=== PATIENT | female | born 1980 | race Caucasian/White ===

== ENCOUNTER 2018-12-08 06:17 | Inpatient (IN) | payer BC ==
[~2018-12-08] VITALS: Ht 175.3 cm; Wt 90.7 kg
[2018-12-08] VITALS (15 sets, daily range): BP systolic 94–136; BP diastolic 55–97
[~2018-12-08 06:17] MED LIST: AMBIEN10 M1 ORAL; AMLODIPINE BESYL5 MG ORAL; LISINOPRIL10 MG ORAL; TYLENOL EXTRA500 MG ORAL; Z-SLEEP25 MG PO
[2018-12-08] MEDS ORDERED: Bacitracin 50000 Units Vial ONE (07:19)
[2018-12-08] MEDS ORDERED: Succinylcholine 20mg/ml 10ml vial ONE (07:43)
[2018-12-08] MEDS ORDERED: Lidocaine 1% MPF 10mg/ml 5ml ONE (07:43)
[2018-12-08] MEDS ORDERED: Zemuron 50mg/5ml Inj IV ONE ×2 (07:43→08:50)
[2018-12-08] MEDS ORDERED: fentaNYL 100 mcg/2 mL IV ONE (07:43)
[2018-12-08] MEDS ORDERED: Midazolam 2mg/2ml Inj ONE (07:43)
[2018-12-08] MEDS ORDERED: Propofol 200mg/20ml IV ONE (07:43)
[2018-12-08] MEDS ORDERED: TransDerm Scop 1mg/72HR Patch TDERMAL ONE ×2 (07:58→09:00)
[2018-12-08] MEDS ORDERED: Ketorolac 30mg Inj ONE (08:00)
[2018-12-08] MEDS ORDERED: LR 1000ml ONE ×2 (08:00→18:39)
[2018-12-08] MEDS ORDERED: Sterile Water Irrig 1000ml IRRIG ONE (08:00)
[2018-12-08] MEDS ORDERED: NS Irrig 2000ml IRRIG ONE (08:01)
[2018-12-08] MEDS ORDERED: NS Irrig 1000ml IRRIG ONE (08:01)
--- NOTE | 2018-12-08 08:06 | Pre-Procedure Note/Attestation ---
Pre-Procedure Note/Attestation Complete Prior to Procedure Planned Procedure: bilateral Procedure Narrative: staged excision of bilatreral buttocks and hips and back necrotic soft tissue and flap delay and wound vac placement Indications for Procedure Pre-Operative Diagnosis: bilateral buttock and hip and back necrotic soft tissue/cellulitis Attestation I attest that I discussed the nature of the procedure; its benefits; risks and complications; and alternatives (and the risks and benefits of such alternatives ), prior to the procedure, with the patient (or the patient's legal medical representative). I attest that, if there was a reasonable possibility of needing a blood transfusion, the patient (or the patient's legal medical representative) was given the [place] [facility] of [facility] Services standardized written summary, pursuant to the Johnny Trommald Blood Safety Act ([place] Health and Safety Code # 1645, as amended). I attest that I re-evaluated the patient just prior to the surgery and that there has been no change in the patient's H&P, except as documented below: Aileen Flores M.D. Dec 08, 2018 08:06
[2018-12-08] MEDS ORDERED: PCA HYDROmorphone 1mg/ml 30 ML IV PRN ×2 (08:15→10:50)
[2018-12-08] MEDS ORDERED: DiphenhydrAMINE 50mg/ml Inj IVP PRN ×3 (08:15→09:00)
[2018-12-08] MEDS ORDERED: Dexamethasone 4mg/ml vial ONE (08:31)
[2018-12-08] MEDS ORDERED: Sodium Chloride 10ml vial INJ ONE ×2 (08:46→09:12)
[2018-12-08] MEDS ORDERED: Morphine Sulfate 10mg/ml Inj ONE (08:46)
[2018-12-08] MEDS ORDERED: LR 1000ml 1,000 ML IVLG SCH (08:56)
[2018-12-08] MEDS ORDERED: Hydromorphone 0.5mg/0.5ml inj IVP PRN (09:00)
[2018-12-08] MEDS ORDERED: Acetaminophen (Non formulary) 100 ML IV ONE (09:00)
[2018-12-08] MEDS ORDERED: Ketorolac 30mg Inj IV PRN (09:00)
[2018-12-08] MEDS ORDERED: Metoclopramide 10mg/2ml Inj IVP PRN (09:00)
[2018-12-08] MEDS ORDERED: Naloxone 0.4mg/ml Inj IVP PRN (09:00)
[2018-12-08] MEDS ORDERED: Meperidine 50mg/ml Inj(FOR RIGORS ONLY) IV PRN (09:00)
[2018-12-08] MEDS ORDERED: Midazolam 2mg/2ml Inj IVP PRN (09:00)
[2018-12-08] MEDS ORDERED: LORazepam 1mg tab ORAL PRN (09:00)
[2018-12-08] MEDS ORDERED: PCA Education Pamphlet MISC ONE (09:00)
[2018-12-08] MEDS ORDERED: Rate Change PCA 1 Each MISC PRN (09:00)
[2018-12-08] MEDS ORDERED: Neostigmine 1mg/ml 10ml Inj ONE (09:01)
[2018-12-08] MEDS ORDERED: Glycopyrrolate 0.2mg/ml 1ml Vial ONE (09:01)
[2018-12-08] MEDS ORDERED: ePHEDrine 50mg/ml Inj ONE (09:12)
--- NOTE | 2018-12-08 10:18 | Operative Note - PDOC ---
Operative Note Operative Note Date of Operation/Procedure: Dec 08, 2018 Pre-op Diagnosis: bilateral buttock and hip and back necrotic soft tissue/cellulitis Procedure: debridement of bilateral buttock/back/hip necrotic soft tissue and flap delay and wound vac placement Post-op Diagnosis: same Post-op Diagnosis: same as pre-op Surgeon: hernán Computer Game Tester: patience Anesthesiologist: virgil Anesthesia: general Specimen: yes - bilateral back and buttock necrotic soft tissues Complications: none Condition: stable Estimated Blood Loss: volume - 700 Drains: wound vac Implant(s) used?: No Indications for Procedure necrotic soft tissue symptomatic and cellulitis Description of Procedure see dictation Aileen Flores M.D. Dec 08, 2018 10:17
--- NOTE | 2018-12-08 10:37 | Immediate Post-Op Evaluation ---
Immediate Post-Op Evalulation Immediate Post-Op Evalulation Procedure: Debridement of bilateral buttocks Date of Evaluation: Dec 08, 2018 Time of Evaluation: 10:36 IV Fluids: 1500 Blood Products: none Estimated Blood Loss: 500 Urinary Output: 350 Blood Pressure Systolic: 112 Blood Pressure Diastolic: 56 Pulse Rate: 86 Respiratory Rate: 22 O2 Sat by Pulse Oximetry: 98 Temperature (Fahrenheit): 98.2 Pain Score (1-10): 2 Nausea: No Vomiting: No Complications none Patient Status: awake, patent, extubated, none Hydration Status: adequate Bethel Chávez MD Dec 08, 2018 10:37
--- NOTE | 2018-12-08 10:42 | Anethesia Preoperative Eval ---
Anesthesia Pre-op PMH/ROS General Date of Evaluation: Dec 08, 2018 Time of Evaluation: 07:40 Anesthesiologist: Saira ASA Score: ASA 2 Mallampati Score Class I : Soft palate, uvula, fauces, pillars visible Class II: Soft palate, uvula, fauces visible Class III: Soft palate, base of uvula visible Class IV: Only hard plate visible Mallampati Classification: Class II Surgeon: Mark Diagnosis: Bilateral buttocks cellulitis Surgical Procedure: Debridement of bilateral buttocks Anesthesia History: PONV Family History: no anesthesia problems Allergies: Coded Allergies: No Known Allergies (Unverified , 12/08/18) Medications: see eMAR Patient NPO?: Yes NPO Date: Dec 08, 2018 NPO Time: 0000 Past Medical History Cardiovascular: Reports: HTN - stable; Denies: CAD, OR, valve dz, arrhythmia, other Pulmonary: Reports: BRIDGET - mild; Denies: asthma, COPD, other Gastrointestinal/Genitourinary: Reports: GERD; Denies: CRI, ESRD, other Neurologic/Psychiatric: Reports: depression/anxiety, other - transgender femaile; Denies: dementia, CVA, TIA Endocrine: Denies: DM, hypothyroidism, steroids, other HEENT: Denies: cataract (L), cataract (R), glaucoma, PECHANGA (L), PECHANGA (R), other Hematology/Immune: Denies: anemia, DVT, bleeding disorder, other Musculoskeletal/Integumentary: Denies: OA, RA, DJD, DDD, edema, other PMH Narrative: as above PSxH Narrative: see H&P Anesthesia Pre-op Phys. Exam Physician Exam Last Vital Signs Date Time Temp Pulse Resp B/P (MAP) Pulse Ox O2 Delivery O2 Flow Rate FiO2 12/08/18 06:51 97.0 92 20 136/97 (110) 100 12/08/18 06:50 Room Air Constitutional: NAD Neurologic: CN 2-12 intact Cardiovascular: RRR, no M/R/G Respiratory: CTA Gastrointestinal: S/NT/ND Airway Exam Mallampati Score: Class II MO: full Neck: flexible ROM: full Teeth: intact Dentures: no upper, no lower Anesthesia Pre-op A/P Labs see chart Urine Test Test 12/08/18 06:30 Urine HCG, Qualitative Negative (NEGATIVE) Studies Pre-op Studies: EKG - NSR Risk Assessment & Plan Assessment: ASA 2 Plan: GA with ETT PONV prevention prone position Status Change Before Surgery: No Pre-Antibiotics Drug: Ancef 2gr Given Within 1 Hr of Incision: Yes Time Given: 08:15 Bethel Chávez MD Dec 08, 2018 10:42
--- NOTE | 2018-12-08 12:00 | NUR ---
NURSE NOTES: Patient arrived from PACU via bed at 1200. Report received from Kourtney KUHN. Patient on O2 3LNC. No SOB, pain, or NV. Left wrist IV infusing, as ordered, site asymptomatic. RN HOMECARE (Dilaudid), connected, instructed patient on use and setting. Wound Vac #1 (right) with bloody drainage in cannister, less than 50 ml. Wound Vac #2 (left), empty. Back/hip dressing tegederm intact, right side with bloody drainage pooling in tegederm. Neves catheter in place, patent, draining well to gravity, y/cl urine. Reviewed post op orders for diet, medications, antibiotics, proper positioning and activity, verbalized understanding. Bilateral SCDs on. Patient oriented to room, call light in reach, bed in lowest position, will continue to monitor.
[2018-12-08] MEDS: LR 1000ml 1,000 ML IV SCH ×2 (13:35→23:28)
--- NOTE | 2018-12-08 14:00 | NUR ---
NURSE NOTES: Demonstrated cough, deep breathing exercises, patient returned demonstration. Needs further teaching and reinforcement. Instructed patient to perform 10x/hour, verbalized understanding.
--- NOTE | 2018-12-08 15:21 | NUR ---
CHARGE NURSE NOTE: Pt has 2 wound vac. machines, suctioning buttocks area. Left wound vac still empty, pt concerns that 0 drainage in the left canister. Spoke with . Notified him about left wound vac canister output, and that the area around foam is oozing. No new orders were given. Pt was ambulating around unit, accompanied by UNDERWRITING MANAGER. No signs of distress noted.
[2018-12-08] MEDS: Ampicillin/Sulbactam Sod 3 GM in NS 110 ML IVPB SCH ×2 (15:24→23:28)
--- NOTE | 2018-12-08 18:00 | NUR ---
NURSE NOTES: Patient ambulated in lake x2 with RN assist. Gait steady, asymptomatic, no c/o SOB, chest pain or dizziness. Surgical dressing remains unchanged. Wound Vac #2 canister noted with bloody output. Reinforced position orders, for patient to switch from prone to supine position. Assisted patient in prone position, however, patient said she is uncomfortable and switched back to semi-fowlers position with pillow beneath hips/buttocks area. Will continue to monitor.
[2018-12-08] MEDS ORDERED: Tubing IV Secondary IV ONE (18:39)
--- NOTE | 2018-12-08 19:30 | NUR ---
HAND-OFF: Report given to Jerry KUHN. Output: Neves Catheter: 1625 ml.
--- NOTE | 2018-12-08 19:30 | NUR ---
HAND-OFF: Report given to Jerry KUHN. Outputs: Wound Vac #1 (right) = 250 ml bloody Wound Vac #2 (left) = 50 ml bloody
[2018-12-08] MEDS: PCA shift volume MISC SCH (19:35)
--- NOTE | 2018-12-08 19:45 | NUR ---
NURSE NOTES: Pt lying in bed w/bed in lowest position and call light within reach. Pt A&Ox4, VSS, and in no apparent distress at this time. IV site intact/asymptomatic w/IVF @ 125 ml/hr; wound vacs @ 125 mm Hg mod/cont suction; and surgical dressing intact. Will continue to monitor.
--- NOTE | 2018-12-08 19:54 | History & Physical ---
History and Physical History & Physicial DICTATED #[id number] Bruno Dinero MD Dec 08, 2018 19:54
[2018-12-08] MEDS ORDERED: Zolpidem 5mg tab ORAL PRN (20:00)
[2018-12-08] MEDS ORDERED: Miralax 17gm pkt ORAL PRN (20:00)
--- NOTE | 2018-12-08 20:45 | NUR ---
NURSE NOTES: Contacted Dr. Dinero regarding pt's request to take Lisinopril 20 mg at bedtime instead of in the AM; MD Fernando. Will continue to monitor.
[2018-12-08] MEDS: Lisinopril 20mg tab ORAL SCH (21:05)
[2018-12-08] MEDS: Heparin 5000 units/ml inj SUBQ SCH (21:13)
--- NOTE | 2018-12-08 22:15 | History and Physical Report ---
DATE OF ADMISSION: 12/08/2018 HISTORY OF PRESENT ILLNESS: This is a 38-year-old female status post sexual reassignment surgery in 2013, cholecystectomy, anxiety, bilateral buttock silicone surgery 2007, hypertension who was admitted today for gluteal tissue necrosis secondary to silicone surgery. The patient is status post debridement of bilateral bilateral buttock/back/hips with necrotic soft tissue and flaps delay and wound VAC placement bilaterally. She is on TACK PULLER Dilaudid pump with minimal pain. She denies any nausea or vomiting. She is able to ambulate. She has not passed gas or had a bowel movement. She has no complaints. PAST MEDICAL HISTORY: Significant for hypertension, bilateral buttock surgery in 2007, anxiety, sexual reassignment surgery in 2013, cholecystectomy. PAST SURGICAL HISTORY: As above. FAMILY HISTORY: Noncontributory. SOCIAL HISTORY: The patient drinks alcohol occasionally. No smoking. REVIEW OF SYSTEMS: A 12-point review of systems negative except for pertinent positives as mentioned above. PHYSICAL EXAMINATION: GENERAL: No acute distress. The patient is alert, awake, and oriented x3. VITAL SIGNS: Temperature 98.3, pulse is 112, blood pressure 114/77, respiratory rate 18. HEENT: Normocephalic and atraumatic. NECK: Supple. No JVD. LUNGS: Clear to auscultation bilaterally. No crackles, rhonchi, or rales. CARDIOVASCULAR: Regular rate and rhythm. Normal S1, S2. ABDOMEN: Soft, nontender, and nondistended. EXTREMITIES: No clubbing, cyanosis, or edema. Gluteal region, the patient has wound VAC over both gluteal with drainage on the right side however left side does not appear to have much drainage. Wound VAC still is in place. LABORATORY AND DIAGNOSTIC DATA: None. ASSESSMENT: 1. Necrotic soft tissue secondary to bilateral buttock silicone injection surgery in 2007 status post debridement of bilateral buttock/back/hips and necrotic soft tissue and flaps delay and wound VAC placement on 12/08/2018. 2. Hypertension. 3. Anxiety. 4. Sexual reassignment surgery. 5. Cholecystectomy. PLAN: 1. The patient admitted to Med/Surg. 2. Plan for debridement on Wednesday. 3. Monitor wound VAC. 4. Dilaudid TACK PULLER pump. 5. Stool softener as needed. 6. DVT prophylaxis with heparin. 7. Resume amlodipine and lisinopril for hypertension. 8. Ambien for her insomnia. 9. Antibiotics-ampicillin/sulbactam. 10. Intravenous fluids-Lactate Ringers. 11. Plastic surgery recommendations appreciated. Bruno Dinero MD DR: Ethel JOB#: [id number] CC:
[2018-12-09] VITALS: BP 114/81
[2018-12-09 04:00] VITALS: BP 117/81
[2018-12-09] MEDS: Heparin 5000 units/ml inj SUBQ SCH ×3 (06:02→22:35)
[2018-12-09 06:42] LABS: ANION GAP 7 mmol/L (5-15); BLOOD UREA NITROGEN 18 mg/dL (7-18); CALCIUM 8.8 MG/DL (8.5-10.1); CARBON DIOXIDE 28 MMOL/L (21-32); CHLORIDE 106 MMOL/L (98-107); CREATININE 0.8 MG/DL (0.55-1.30); POTASSIUM 4.2 MMOL/L (3.5-5.1); SODIUM 141 MMOL/L (136-145)
[2018-12-09 06:43] LABS: BASOPHILS % (AUTO) 0.3 % (0.0-2.0); EOSINOPHILS % (AUTO) 0.1 % (0.0-3.0); HEMATOCRIT 28.6 % (37.0-47.0); LYMPHOCYTES % (AUTO) 28.7 % (20.0-45.0); MEAN CORPUSCULAR VOLUME 89 FL (80-99); MONOCYTES % (AUTO) 9.6 % (1.0-10.0); NEUTROPHILS % (AUTO) 61.2 % (45.0-75.0); PLATELET COUNT 214 K/UL (150-450); RED BLOOD COUNT 3.21 M/UL (4.20-5.40); RED CELL DISTRIBUTION WIDTH 11.2 % (11.6-14.8); WHITE BLOOD COUNT 8.1 K/UL (4.8-10.8)
[2018-12-09] MEDS: Ampicillin/Sulbactam Sod 3 GM in NS 110 ML IVPB SCH ×3 (06:56→23:57)
[2018-12-09] MEDS: LR 1000ml 1,000 ML IV SCH ×3 (06:57→21:31)
[2018-12-09] MEDS ORDERED: Sterile Water Irrig 1000ml IRRIG ONE (07:00)
[2018-12-09] MEDS ORDERED: Propofol 1,000mg/ 100ml btl IV ONE (07:00)
[2018-12-09] MEDS ORDERED: LR 1000ml ONE (07:00)
--- NOTE | 2018-12-09 07:30 | NUR ---
HAND-OFF: Report given to BAM Sutton.
--- NOTE | 2018-12-09 07:35 | NUR ---
NURSE NOTES: Report received from outgoing nurse, rounds made. Patient in supine position, in bed, sleeping, easily arousable to name. Spouse at bedside. No distress on RA. IVF infusing to LW as ordered, site asymptomatic, will decrease rate to 20 ml/hr at 0900 as ordered. MANAGER MARKET (Dilaudid) connected. FC patent, draining y/cl urine to gravity. Bilateral wound vac in place, on continuous moderate setting 125 mm, will clarify with Dr. Flores due to order. Lower back/hips amanuel, foam, tegederm dressing remains intact. Bilateral SCDs on. Call light in reach, bed in lowest position, will continue to monitor.
[2018-12-09] MEDS: PCA shift volume MISC SCH ×2 (07:39→19:27)
[2018-12-09 08:00] VITALS: BP 122/78
--- NOTE | 2018-12-09 08:20 | NUR ---
NURSE NOTES: Spoke to Dr. Flores, clarified wound vac suction setting, see order. Updated on H/H level this AM (10.0/28.6).
--- NOTE | 2018-12-09 08:57 | NUR ---
CASE MANAGEMENT:REVIEW 12/08/18 38 YR OLD FEMALE SI: BILATERAL BUTTOCK/HIP/BACK NECROSIS/CELLULITIS 97.0 92 20 136/97 100% ON RA IS: TO SURGERY: DEBRIDEMENT AND FLAP DELAY AND WOUND VAC PLACEMENT IV AMPICILLIN Q8HRS IVF LR@125/HR COLLEGE SPECIALIST DILAUDID : TO MED/SURG 3 [facility] OP 12/09/18 SI: POD #1 S/P BUTTOCK DEBRIDEMENT,FLAP DELAY AND WOUND VAC PLACEMENT 99.7 108 18 114/81 98% ON RA H/H-10.0/28.6 GLUCOSE+127 IS: IV AMPICILLIN Q8HRS IVF LR@125/HR COLLEGE SPECIALIST DILAUDID NORVASC PO QD HEPARIN SQ Q8HRS LISINOPRIL PO QHS : MED/SURG STATUS 3 [facility] PLAN: WOUND VAC
[2018-12-09] MEDS ORDERED: Lisinopril 20mg tab ORAL SCH (09:00)
--- NOTE | 2018-12-09 10:47 | General Progress Note ---
Subjective Date patient seen: Dec 09, 2018 Time patient seen: 10:15 Allergies: Coded Allergies: No Known Allergies (Unverified , 12/08/18) Subjective pt doing very well and reports resolution of pre-op local and systemic symptoms including fatigue, paresthesias of bilateral UE and LE, back pain, buttock/hip pain burning and itching; pt (+) OOB AF,VSS H/H 06/20 PE: flaps viable VACS inplace and functioning (-) signs infection/collections A/P 1. d/c mccormack 2. cont abx, dvt ppx, anti-htn meds 3. OOB TID, cont vacs 4. NPO, IVC p MN to OR Sat 7 am for further debridement of bilateral buttock/ hip necrotic soft tissues and advancement flap closure over drains Objective Last 24 Hour Vital Signs Date Time Temp Pulse Resp B/P (MAP) Pulse Ox O2 Delivery O2 Flow Rate FiO2 12/09/18 09:00 Room Air 12/09/18 08:00 18 12/09/18 08:00 97.8 90 17 122/78 (93) 100 12/09/18 04:00 98.3 96 18 117/81 (93) 100 12/09/18 04:00 18 12/09/18 00:00 98.5 108 18 114/81 (92) 98 12/09/18 00:00 18 12/08/18 21:05 113/78 12/08/18 21:00 Room Air 12/08/18 20:00 99.7 111 18 113/78 (90) 99 12/08/18 20:00 18 12/08/18 16:00 18 12/08/18 16:00 98.3 112 18 114/77 (89) 99 12/08/18 15:00 98.0 108 19 115/76 (89) 98 12/08/18 14:00 98.8 111 19 117/76 (90) 98 12/08/18 13:00 98.2 85 19 110/80 (90) 98 12/08/18 12:30 98.0 111 19 111/75 (87) 98 12/08/18 12:00 97.9 106 19 114/76 (89) 99 12/08/18 12:00 18 12/08/18 11:37 98.0 94 18 111/70 100 Nasal Cannula 3 12/08/18 11:37 18 12/08/18 11:31 98.0 107 18 113/72 100 Nasal Cannula 3 12/08/18 11:27 18 12/08/18 11:15 107 18 114/66 100 Nasal Cannula 3 12/08/18 11:12 18 12/08/18 10:55 96 18 106/63 100 Nasal Cannula 3 Intake and Output 12/08/18 12/09/18 19:00 07:00 Intake Total 3341 ml 1297.5 ml Output Total 2775 ml 1750 ml Balance 566 ml -452.5 ml Intake Oral 1316 ml IV Total 2025 ml 1297.5 ml Output Urine Total 1975 ml 1500 ml Drainage Total 300 ml 250 ml Estimated Blood Loss 500 ml # Voids 2 Laboratory Tests 12/09/18 05:25: White Blood Count 8.1, Red Blood Count 3.21L, Hemoglobin 10.0L, Hematocrit 28.6L , Mean Corpuscular Volume 89, Mean Corpuscular Hemoglobin 31.1H, Mean Corpuscular Hemoglobin Concent 34.9, Red Cell Distribution Width 11.2L, Platelet Count 214, Mean Platelet Volume 6.8, Neutrophils (%) (Auto) 61.2, Lymphocytes (%) (Auto) 28.7, Monocytes (%) (Auto) 9.6, Eosinophils (%) (Auto) 0.1, Basophils (%) (Auto) 0.3, Sodium Level 141, Potassium Level 4.2, Chloride Level 106, Carbon Dioxide Level 28, Anion Gap 7, Blood Urea Nitrogen 18, Creatinine 0.8, Estimat Glomerular Filtration Rate > 60, Glucose Level 127H, Calcium Level 8.8 Height (Feet): 5 Height (Inches): 9.00 Weight (Pounds): 200 Aileen Flores M.D. Dec 09, 2018 10:47
--- NOTE | 2018-12-09 10:47 | Pre-Procedure Note/Attestation ---
Pre-Procedure Note/Attestation Complete Prior to Procedure Planned Procedure: bilateral Indications for Procedure Pre-Operative Diagnosis: bilateral buttock and hip and back necrotic soft tissue/cellulitis Attestation I attest that I discussed the nature of the procedure; its benefits; risks and complications; and alternatives (and the risks and benefits of such alternatives ), prior to the procedure, with the patient (or the patient's legal footwear sales representative). I attest that, if there was a reasonable possibility of needing a blood transfusion, the patient (or the patient's legal footwear sales representative) was given the [facility] standardized written summary, pursuant to the Johnny Jazmine Blood Safety Act ([place] Health and Safety Code # 1645, as amended). I attest that I re-evaluated the patient just prior to the surgery and that there has been no change in the patient's H&P, except as documented below: Aileen Flores M.D. Dec 09, 2018 10:47
[2018-12-09 12:00] VITALS: BP 120/71
--- NOTE | 2018-12-09 12:56 | 48 Hour Post Anesthesia Eval ---
Post Anesthesia Evaluation Procedure: Debridement of bilateral buttocks Date of Evaluation: Dec 09, 2018 Time of Evaluation: 06:42 Blood Pressure Systolic: 117 0: 81 Pulse Rate: 96 Respiratory Rate: 18 Temperature (Fahrenheit): 98.3 O2 Sat by Pulse Oximetry: 100 Airway: patent Nausea: No Vomiting: No Pain Intensity: 2 Hydration Status: adequate Cardiopulmonary Status: Stable Mental Status/LOC: patient returned to baseline Follow-up Care/Observations: 0 Post-Anesthesia Complications: 0 Follow-up care needed: N/A Ted Almodovar MD Dec 09, 2018 12:56
--- NOTE | 2018-12-09 13:16 | NUR ---
*-* NO INSURANCE INFORMATION IN THE BAR UNABLE TO SEND CLINICALS *-*
--- NOTE | 2018-12-09 14:09 | NUR ---
*-* INSURANCE *-* ALL CLINICALS AND REVIEWS HAVE BEEN FAXED TO: [facility]:CARLOS REF# [id number] F:[phone]
[2018-12-09 16:00] VITALS: BP 115/76
--- NOTE | 2018-12-09 17:00 | NUR ---
NURSE NOTES: Consent for OR reviewed with patient and signed. Instructed on NPO after MDN tonight, verbalized understanding.
--- NOTE | 2018-12-09 17:37 | Internal Med Progress Note ---
Subjective Physician Name RosetteBruno Attending Physician Aileen Flores M.D. Current Medications Medications (Trade) Dose Ordered Sig/Abril Route PRN Reason Start Time Stop Time Status Last Admin Dose Admin Acetaminophen (Tylenol) 325 mg Q6H PRN ORAL Mild Pain/Temp > 100.5 12/08/18 20:00 01/07/19 19:59 12/09/18 12:39 Amlodipine Besylate (Norvasc) 5 mg DAILY ORAL 12/09/18 09:00 01/08/19 08:59 12/09/18 10:46 Ampicillin Sodium/ Sulbactam Sodium 3 gm/Sodium Chloride 110 ml @ 220 mls/hr Q8H IVPB 12/08/18 15:00 12/15/18 14:59 12/09/18 16:08 Diphenhydramine HCl (Benadryl) 50 mg Q6H PRN IVP Itching 12/08/18 08:15 01/07/19 08:14 Heparin Sodium (Porcine) (Heparin 5000 units/ml) 5,000 units EVERY 8 HOURS SUBQ 12/08/18 22:00 01/07/19 21:59 12/09/18 14:55 Hydromorphone HCl 30 ml @ 0 mls/hr Q24H PRN IV For Pain 12/08/18 10:50 12/10/18 10:49 12/08/18 10:56 Hydromorphone HCl (Dilaudid) 2 mg Q3H PRN SUBQ Severe Pain (Pain Scale 7-10) 12/08/18 11:00 12/10/18 10:59 Hydromorphone HCl (Dilaudid) 2 mg Q4H PRN IVP Moderate Pain (Pain Scale 4-6) 12/08/18 11:00 12/10/18 10:59 Lactated Ringer's 1,000 ml @ 125 mls/hr Q8H IV 12/08/18 13:31 01/07/19 13:30 12/09/18 06:57 Lisinopril (Prinivil) 20 mg BEDTIME ORAL 12/08/18 21:00 01/08/19 08:59 12/08/18 21:05 Lorazepam (Ativan) 1 mg Q4H PRN ORAL Muscle Spasm 12/08/18 09:00 12/10/18 08:59 Miscellaneous Medication (FORMULA MAKER Rate Change) 1 ea DAILY PRN MISC rate change 12/08/18 09:00 12/10/18 08:59 Miscellaneous Medication (FORMULA MAKER shift volume) 1 ea Q12HR@0700,1900 MISC 12/08/18 19:00 12/10/18 18:59 12/09/18 07:39 Naloxone HCl (Narcan) 0.1 mg Q1M PRN IVP RR<10/min OR SBP<90 mmHg 12/08/18 09:00 12/10/18 08:59 Ondansetron HCl (Zofran) 4 mg Q6H PRN IVP Nausea & Vomiting 12/08/18 09:00 12/10/18 08:59 Polyethylene Glycol (Miralax) 17 gm DAILYPRN PRN ORAL Constipation 12/08/18 20:00 01/07/19 19:59 Temazepam (Restoril) 7.5 mg HSPRN PRN ORAL Insomnia 12/08/18 09:00 12/10/18 08:59 Allergies: Coded Allergies: No Known Allergies (Unverified , 12/08/18) All Systems: reviewed and negative except above - headache Objective Last Vital Signs Date Time Temp Pulse Resp B/P (MAP) Pulse Ox O2 Delivery O2 Flow Rate FiO2 12/09/18 16:00 98.8 93 18 115/76 (89) 100 12/09/18 09:00 Room Air 12/08/18 11:37 3 General Appearance: no apparent distress, alert EENT: normal ENT inspection, TMs normal Neck: normal alignment, supple Cardiovascular: normal rate, regular rhythm Respiratory/Chest: lungs clear, normal breath sounds Abdomen: non tender, soft Extremities: normal range of motion, non-tender Edema: trace edema, non-pitting Skin: other - wound vac over gluteal wound. c/d/i Laboratory Tests Test 12/09/18 05:25 White Blood Count 8.1 K/UL (4.8-10.8) Red Blood Count 3.21 M/UL (4.20-5.40) L Hemoglobin 10.0 G/DL (12.0-16.0) L Hematocrit 28.6 % (37.0-47.0) L Mean Corpuscular Volume 89 FL (80-99) Mean Corpuscular Hemoglobin 31.1 PG (27.0-31.0) H Mean Corpuscular Hemoglobin Concent 34.9 G/DL (32.0-36.0) Red Cell Distribution Width 11.2 % (11.6-14.8) L Platelet Count 214 K/UL (150-450) Mean Platelet Volume 6.8 FL (6.5-10.1) Neutrophils (%) (Auto) 61.2 % (45.0-75.0) Lymphocytes (%) (Auto) 28.7 % (20.0-45.0) Monocytes (%) (Auto) 9.6 % (1.0-10.0) Eosinophils (%) (Auto) 0.1 % (0.0-3.0) Basophils (%) (Auto) 0.3 % (0.0-2.0) Sodium Level 141 MMOL/L (136-145) Potassium Level 4.2 MMOL/L (3.5-5.1) Chloride Level 106 MMOL/L (98-107) Carbon Dioxide Level 28 MMOL/L (21-32) Anion Gap 7 mmol/L (5-15) Blood Urea Nitrogen 18 mg/dL (7-18) Creatinine 0.8 MG/DL (0.55-1.30) Estimat Glomerular Filtration Rate > 60 mL/min (>60) Glucose Level 127 MG/DL (74-106) H Calcium Level 8.8 MG/DL (8.5-10.1) Microbiology Date/Time Source Procedure Growth Status 12/08/18 07:25 Nasal Nares MRSA Culture - Final NO METHICILLIN RESISTANT STAPH AUREUS... Complete Intake and Output 12/08/18 12/09/18 19:00 07:00 Intake Total 3341 ml 1297.5 ml Output Total 2775 ml 1750 ml Balance 566 ml -452.5 ml Intake Oral 1316 ml IV Total 2025 ml 1297.5 ml Output Urine Total 1975 ml 1500 ml Drainage Total 300 ml 250 ml Estimated Blood Loss 500 ml # Voids 2 Assessment/Plan Assessment/Plan ASSESSMENT: 1. Necrotic soft tissue secondary to bilateral buttock silicone injection surgery in 2007 status post debridement of bilateral buttock/back/hips and necrotic soft tissue and flaps delay and wound VAC placement on 12/08/2018. 2. Hypertension. 3. Anxiety. 4. Sexual reassignment surgery. 5. Cholecystectomy. 6. BRIDGET PLAN: 1. Medsurg 2. Plan for debridement on Wednesday. 3. Monitor wound VAC output 4. Dilaudid FORMULA MAKER pump. 5. Stool softener as needed. 6. DVT prophylaxis with heparin. 7. Resume lisinopril but hold amlodipine bc of low blood pressure 8. Ambien for her insomnia. 9. Antibiotics-ampicillin/sulbactam. 10. Intravenous fluids-Lactate Ringers. 11. Plastic surgery recommendations appreciated. 12. CPAP [facility] Bruno Dinero MD Dec 09, 2018 17:37
--- NOTE | 2018-12-09 19:15 | NUR ---
HAND-OFF: Report given to Claribel KUHN. Outputs: Neves: 2700 ml (DC at 1620, voided at 1745) Wound Vac #1 (right) 50 ml Wound Vac #2 (left) 60 ml
[2018-12-09 20:00] VITALS: BP 135/89
--- NOTE | 2018-12-09 20:16 | NUR ---
NURSE NOTES: Pt received in bed at lowest position, call light within reach, able to make needs known, with 2 guests at bedside, [address] draining, IV in place running lactated ringers at 20 will adjust to 125 at midnight and NPO at midnight, no c/o pain or signs of distress at the moment, Will continue to monitor
[2018-12-09] MEDS: Lisinopril 20mg tab ORAL SCH (20:48)
[2018-12-10] VITALS (13 sets, daily range): BP systolic 91–121; BP diastolic 60–88
[2018-12-10] MEDS: LR 1000ml 1,000 ML IV SCH ×3 (04:35→18:31)
[2018-12-10] MEDS: Heparin 5000 units/ml inj SUBQ SCH ×3 (06:00→22:24)
[2018-12-10 06:19] LABS: BASOPHILS % (AUTO) 0.6 % (0.0-2.0); EOSINOPHILS % (AUTO) 0.3 % (0.0-3.0); HEMATOCRIT 29.4 % (37.0-47.0); LYMPHOCYTES % (AUTO) 48.4 % (20.0-45.0); MEAN CORPUSCULAR VOLUME 90 FL (80-99); MONOCYTES % (AUTO) 8.1 % (1.0-10.0); NEUTROPHILS % (AUTO) 42.6 % (45.0-75.0); PLATELET COUNT 181 K/UL (150-450); RED BLOOD COUNT 3.26 M/UL (4.20-5.40); RED CELL DISTRIBUTION WIDTH 11.7 % (11.6-14.8); WHITE BLOOD COUNT 7.7 K/UL (4.8-10.8)
[2018-12-10 06:39] LABS: ANION GAP 9 mmol/L (5-15); BLOOD UREA NITROGEN 14 mg/dL (7-18); CALCIUM 8.9 MG/DL (8.5-10.1); CARBON DIOXIDE 28 MMOL/L (21-32); CHLORIDE 106 MMOL/L (98-107); CREATININE 0.8 MG/DL (0.55-1.30); POTASSIUM 3.8 MMOL/L (3.5-5.1); SODIUM 143 MMOL/L (136-145)
[2018-12-10] MEDS ORDERED: Bacitracin 50000 Units Vial ONE (06:40)
[2018-12-10] MEDS ORDERED: Dexamethasone 4mg/ml vial ONE (06:41)
[2018-12-10] MEDS ORDERED: Lidocaine 1% MPF 10mg/ml 5ml ONE (06:41)
[2018-12-10] MEDS ORDERED: Sodium Chloride 10ml vial INJ ONE (06:41)
[2018-12-10] MEDS ORDERED: fentaNYL 100 mcg/2 mL IV ONE ×2 (06:42→08:46)
--- NOTE | 2018-12-10 06:43 | Immediate Post-Op Evaluation ---
Immediate Post-Op Evalulation Immediate Post-Op Evalulation Procedure: Debridement of bilateral buttocks, Flap Closure Date of Evaluation: Dec 10, 2018 Time of Evaluation: 10:53 IV Fluids: 800 LR Blood Products: 0 Estimated Blood Loss: 200 Urinary Output: 0 Blood Pressure Systolic: 109 Blood Pressure Diastolic: 69 Pulse Rate: 99 Respiratory Rate: 16 O2 Sat by Pulse Oximetry: 100 Temperature (Fahrenheit): 97.8 Pain Score (1-10): 2 Nausea: No Vomiting: No Complications 0 Patient Status: awake, reacts, patent, extubated, none Hydration Status: adequate Dru Grams Ancef IV Given Within 1 Hr of Incision: Yes Time Given: 07:24 Ted Almodovar MD Dec 10, 2018 06:43
[2018-12-10] MEDS ORDERED: Lidocaine 1% Plain 30 ml INJ ONE ×2 (06:46→08:59)
[2018-12-10] MEDS: Ampicillin/Sulbactam Sod 3 GM in NS 110 ML IVPB SCH ×3 (07:00→22:23)
[2018-12-10] MEDS: PCA shift volume MISC SCH ×2 (07:29→19:06)
--- NOTE | 2018-12-10 07:36 | NUR ---
HAND-OFF: Report given to BAM Avery.
--- NOTE | 2018-12-10 07:40 | NUR ---
NURSE NOTES: Patient still in surgery.
[2018-12-10] MEDS ORDERED: Bacitracin 50000 Units Vial IRRIG ONE (08:09)
[2018-12-10] MEDS ORDERED: NS Irrig 2000ml IRRIG ONE (08:18)
[2018-12-10] MEDS ORDERED: LR 1000ml ONE (09:42)
[2018-12-10] MEDS ORDERED: LR 1000ml 1,000 ML IVLG SCH (10:02)
[2018-12-10] MEDS ORDERED: Ketorolac 30mg Inj IV PRN ×2 (10:15)
[2018-12-10] MEDS ORDERED: fentaNYL 100 mcg/2 mL IV PRN (10:15)
[2018-12-10] MEDS ORDERED: Midazolam 2mg/2ml Inj IVP PRN (10:15)
[2018-12-10] MEDS ORDERED: Labetalol 5mg/ml 20ml vial IV PRN (10:15)
[2018-12-10] MEDS ORDERED: Meperidine 50mg/ml Inj(FOR RIGORS ONLY) IVP PRN (10:15)
[2018-12-10] MEDS ORDERED: HYDROcodone/Acetamin 7.5/325 tab ORAL PRN (10:15)
[2018-12-10] MEDS ORDERED: LORazepam Inj 2mg/ml 1ml IV PRN (10:15)
[2018-12-10] MEDS ORDERED: Acetaminophen (Non formulary) 100 ML IV ONE (10:15)
[2018-12-10] MEDS ORDERED: Hydromorphone 0.5mg/0.5ml inj IVP PRN (10:15)
[2018-12-10] MEDS ORDERED: Atropine Sulfate 0.4mg/ml inj IVP PRN (10:15)
[2018-12-10] MEDS ORDERED: Metoclopramide 10mg/2ml Inj IVP PRN (10:15)
[2018-12-10] MEDS ORDERED: HYDROcodone/Acetamin 5/325 tab ORAL PRN (10:15)
[2018-12-10] MEDS ORDERED: oxyCODONE HCL/Acetaminophen 5/325mg ORAL PRN (10:15)
[2018-12-10] MEDS ORDERED: DiphenhydrAMINE 50mg/ml Inj IVP PRN ×2 (10:15→11:00)
--- NOTE | 2018-12-10 10:41 | 48 Hour Post Anesthesia Eval ---
Post Anesthesia Evaluation Procedure: Debridement of bilateral buttocks, Flap Closure Date of Evaluation: Dec 10, 2018 Time of Evaluation: 13:12 Blood Pressure Systolic: 103 0: 72 Pulse Rate: 89 Respiratory Rate: 18 Temperature (Fahrenheit): 98.2 O2 Sat by Pulse Oximetry: 100 Airway: patent Nausea: No Vomiting: No Pain Intensity: 2 Cardiopulmonary Status: Stable Follow-up Care/Observations: 0 Post-Anesthesia Complications: 0 Follow-up care needed: N/A Ted Almodovar MD Dec 10, 2018 10:41
--- NOTE | 2018-12-10 10:59 | Operative Note - PDOC ---
Operative Note Operative Note Pre-op Diagnosis: bilateral buttock and hip and back necrotic soft tissue/cellulitis Procedure: debridement of bilateral buttock/hip necrotic soft tissue and advancement flap closure Post-op Diagnosis: same Post-op Diagnosis: same as pre-op Surgeon: hernán Study Director: patience Anesthesiologist: thalia Anesthesia: general Specimen: yes - bilateral hipbuttock necrotic soft tissues Complications: none Condition: stable Estimated Blood Loss: volume - 700 Drains: SAIRA Implant(s) used?: No Indications for Procedure symptomatic soft tissue necrosis Description of Procedure see dictation Aileen Flores M.D. Dec 10, 2018 10:59
[2018-12-10] MEDS ORDERED: Naloxone 0.4mg/ml Inj IVP PRN (11:00)
[2018-12-10] MEDS ORDERED: LORazepam 1mg tab ORAL PRN (11:00)
[2018-12-10] MEDS ORDERED: PCA HYDROmorphone 1mg/ml 30 ML IV PRN (11:00)
[2018-12-10] MEDS ORDERED: PCA Education Pamphlet MISC SCH (11:00)
[2018-12-10] MEDS ORDERED: Rate Change PCA 1 Each MISC PRN (11:00)
--- NOTE | 2018-12-10 12:15 | NUR ---
NURSE NOTES: Ines RN brought patient by bed in stable condition. On O2 @ 3L via NC. Complain of pain 4/10 and on BOOM CONVEYOR OPERATOR for pain management. Wound vac on going as ordered. SAIRA x4 patent and draining well. IV dressing intact and dry. Bed lowest position. Call light within reach. Will continue to monitor.
--- NOTE | 2018-12-10 18:30 | Operative Note - Dictated ---
DATE OF OPERATION: 12/10/2018 SURGEON: Aileen Flores M.D. SPINDLE CARVER SURGEON: Erendira Suárez M.D. ANESTHESIOLOGIST: Ted Almodovar M.D. ANESTHESIA: General tracheal tube anesthesia. PREOPERATIVE DIAGNOSES: 1. Open bilateral buttock wounds status post radical debridement and resection of necrotic soft tissue masses from bilateral buttocks and back. 2. 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 3. Chronic cellulitis of bilateral buttocks. POSTOPERATIVE DIAGNOSES: 1. Open bilateral buttock wounds status post radical debridement and resection of necrotic soft tissue masses from bilateral buttocks and back. 2. 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 3. Chronic cellulitis of bilateral buttocks. PROCEDURE PERFORMED: 1. Staged partial removal of foreign bodies from bilateral buttocks and hips. 2. Radical resection of 308 square centimeters of left hip necrotic soft tissue tumor like mass. 3. Radical resection of 560 square centimeters of right hip necrotic soft tissue tumor like mass. 4. Extensive debridement of bilateral gluteus renny necrotic muscles. 5. Lumbar spine fasciocutaneous advancement flap closure. 6. Right gluteal fasciocutaneous advancement flap closure. 7. Left gluteal fasciocutaneous advancement flap closure. 8. Complex closure of 67 cm of open back wound. 9. Prevena incisional wound VAC placement. 10. Pulse jet lavage irrigation to bilateral buttocks open wounds. FINDINGS: As above. SPECIMENS: 1. Two left hip and buttock necrotic soft tissue mass and skin. 2. Right hip and buttock necrotic soft tissue mass and skin. ESTIMATED BLOOD LOSS: 500 mL. DRAINS: A 19-Martiniquais Shine x2 in the left buttock and hip and 19-Martiniquais Shine x2 in the right buttock and hip. COMPLICATIONS: None. CONDITION: Stable. INDICATIONS FOR PROCEDURE: This is a 38-year-old female, who I previously operated on 2 days ago. The patient has reported significant resolution of preop symptoms including both local and systemic symptoms. The patient has been treated with wound VAC therapy in the floor as well as intravenous antibiotics. Today, the plan was to take the patient back to the operating room for a planned second stage for further debridement of extensive amount of necrotic soft tissue from bilateral buttocks and hips as well as fasciocutaneous advancement flap closure over drains. Risks and benefits of the operation were fully discussed with the patient in the previous operation and reiterated in the holding area today. The patient agreed to proceed and signed informed consent. All questions were answered. DESCRIPTION OF PROCEDURE: The patient was taken to the operating room in the supine position, placed under general endotracheal tube anesthesia. Perioperative antibiotics were given. SCDs were placed on bilateral lower extremities. After she was intubated, she was flipped in a prone position. After appropriate positioning and padding of the arms and the rest of the body, removed the wound VAC. The area was prepped and draped in usual clean and sterile manner. A blue towel and Ioban dressing was used to block any bowel flow. We started the operation by exploring for any bleeding. There was nothing significant. We then further elevated inferiorly based gluteal fasciocutaneous flaps another 12 cm or so with the aid of a lighted retractor in a plane just superficial to the deep muscle fascia of bilateral gluteus renny muscles. With a lighted retractor, we then elevated in a plane just deep to Taylor's fascia and with a combination of scissors and electrocautery and scalpel technique, we did further debridement of significant amount of necrotic soft tissue from bilateral buttocks and hips. There was more involvement of the right anterior lateral hip than the left. There was a total of 560 square centimeter of the right hip and 308 square centimeter of the left hip and buttock necrotic soft tissue tumor like mass that was removed in this manner and sent to the laboratory for specimen. There was significant involvement of bilateral gluteus muscles that required further debridement with electrocautery. We then thinned the flaps with curved Smith scissors. After doing this and debriding as much as we could to have the flaps appropriately thick enough to minimize wound complications, we ensured hemostasis with electrocautery. We then pulse jet lavaged 3 liters of antibiotic irrigation. We then had these previously elevated fasciocutaneous flaps, which we now advanced by releasing the deep muscle fascia of the lumbar spine fasciocutaneous flap, which were surviving often perforating branches of the posterior intercostal artery as well as left and right inferiorly-based gluteal fasciocutaneous flaps that were supplied by perforating branches of the inferior gluteal artery. After cutting the deep muscle fascia and advancing these flaps, we did progressive tension suturing advancement flap closure technique with #0 Vicryl sutures. Prior to doing this, we had 4 drains 19-Martiniquais Shine, 2 in the right buttock and hip, 2 in the left buttock and hip were taken out through a separate posterior superior back incision secured in place with 2-0 silk sutures. There were significant dog ears on the left and right side, which we accounted for as best we could by tailor tacking the skin and with a #10 blade, we cut out the dog ears. We were then left with a 67 cm long incision. After ensuring hemostasis and doing the advancement flaps, we used #0 Vicryl sutures for the progressive tension suturing technique. A #0 Vicryl sutures to line up and approximate the Taylor's fascia in interrupted fashion. A combination of #0 Vicryl and 2-0 Vicryl to line up and approximate the deep dermis in interrupted fashion and then a running 3-0 Monocryl subcuticular layer. After doing this, there was good capillary refill to the skin flaps. There was some contour irregularity on the right hip from the significant amount of debridement that was performed. We then placed a Prevena incisional wound VAC over this and then we put some drain sponges, flipped the patient over, and extubated the patient. The patient awoke from anesthesia in stable condition. Findings were as above. Specimens were as discussed earlier. Estimated blood loss was about 500 mL. Complications none. Condition stable. There was a significant involvement of the right anterior lateral muscles of the tensor fascia priya and the gluteus renny muscle that required extensive debridement. Aileen Flores M.D. DR: ANASTACIO JOB#: [id number] CC:
--- NOTE | 2018-12-10 18:57 | NUR ---
CASE MANAGEMENT: REVIEW SI: BILATERAL BUTTOCK AND HIP AND BACK NECROTIC SOFT TISSUE/CELLULITIS DEBRIDEMENT OF BILATERAL BUTTOCK/BACK/HIP NECROTIC SOFT TISSUE AND FLAP DELAY AND WOUND VAC PLACEMENT 12/08 T 99.9 HR 110 RR 20 BP 91/60 SAT 95% NC/3L H/H 10.0/29.4 IS: INFORMATION CLERK CASHIER DILAUDID LACTATED RINGER'S IV Q8HR UNASYN IV Q8HR MED/SURG STATUS DCP: PATIENT IS FROM HOME
--- NOTE | 2018-12-10 19:25 | NUR ---
HAND-OFF: Report given to Claribel KUHN. Patient in stable condition.
--- NOTE | 2018-12-10 19:27 | NUR ---
NURSE NOTES: Pt received in prone position, [address], able to make needs known, LR running, no c/o pain or signs of distress at the moment, call light within reach, [address], will continue to monitor.
[2018-12-10] MEDS: Lisinopril 20mg tab ORAL SCH (20:45)
--- NOTE | 2018-12-10 21:30 | Operative Note - Dictated ---
DATE OF OPERATION: 12/08/2018 SURGEON: Aileen Flores M.D. DIRECTOR INDUSTRIAL SURGEON: Erendira Suárez M.D. ANESTHESIOLOGIST: Bethel Chávez M.D. ANESTHESIA: General endotracheal tube anesthesia. PREOPERATIVE DIAGNOSES: 1. Bilateral buttocks, hip, and back soft tissue necrosis secondary to foreign bodies. 2. Chronic cellulitis of bilateral buttocks. POSTOPERATIVE DIAGNOSES: 1. Bilateral buttocks, hip, and back soft tissue necrosis secondary to foreign bodies. 2. Chronic cellulitis of bilateral buttocks. PROCEDURE PERFORMED: 1. Staged partial removal of foreign material from bilateral buttocks, hips, and back. 2. Elevation and delay of right inferiorly based gluteal fasciocutaneous flap. 3. Elevation and delay of left inferiorly based gluteal fasciocutaneous flap. 4. Elevation and delay of lumbar spine fasciocutaneous flap. 5. Radical resection of 660 cm2 of right buttock necrotic soft tissue mass. 6. Radical resection of 648 cm2 of left buttock necrotic soft tissue mass. 7. Radical resection of 220 cm2 of right back necrotic soft tissue mass. 8. Radical resection of 220 cm2 of left back necrotic soft tissue mass. 9. Extensive debridement of the necrotic bilateral gluteus renny muscles. 10. Pulse jet lavage irrigation to bilateral buttocks. 11. Wound VAC placement to bilateral buttocks. SPECIMENS: 1. Left back necrotic soft tissue tumor-like mass. 2. Right back necrotic soft tissue tumor-like mass. 3. Left buttock necrotic soft tissue tumor-like mass. 4. Right buttock necrotic soft tissue tumor-like mass. ESTIMATED BLOOD LOSS: 750 mL. COMPLICATIONS: None. DRAINS: Wound VACs to bilateral buttocks. CONDITION: Stable. INDICATION FOR PROCEDURE: This is a 38-year-old female, who is scheduled today for staged partial removal and debridement of bilateral buttocks, hip, and back soft tissue necrosis as well as fasciocutaneous flap delay and wound VAC placement. The patient has history of foreign material injected into bilateral buttocks several years ago in multiple sessions, approximately 8. The patient has had local as well as systemic symptoms such as low back pain, buttock pain, burning, itching, bilateral lower extremity paresthesias, bilateral carpal tunnel syndrome, occasional shortness of breath, anxiety, and chronic fatigue. She has been worked up for VINCE syndrome and her blood work is pending. Preoperatively, the patient was seen and optimized by her medical doctor. The patient was also seen by a psychiatrist preoperatively so that she understands the followin. This is a partial staged removal of foreign material that was injected into her buttocks and hips and there is no guarantee that she will get better. 2. I do not know how much of the foreign material I will be going to take out, but I will take out whatever is possible in a safe and effective manner. 3. There is a possibility she may get worse and some of the material may migrate, some of it may have continued to migrate, some of it may have already migrated, and some of it may continue to migrate in the future. 4. There is a possibility that this could come out cosmetically disfiguring with a very poor cosmetic outcome. 5. She may need multiple surgeries over many years. The proposed benefits of the operation would be to debulk and remove as much of the foreign material as possible, which would likely take the pressure off the nerves of the spine, the legs, the buttocks, and the back and relieve her pain and symptoms and should improve her immune system, so she is not as prone to recurrent infections and opportunistic infections and hopefully prevent further migration of the materials to other parts of the body. The patient has low-grade chronic cellulitis as well as significant soft tissue hardening and some small areas of hyperpigmentation and erythema of bilateral buttocks and hips. The anterolateral hips were significantly involved and this would flare up and get swollen, red, warm, and tender and this went very far anterior, inferior, and lateral from the buttocks. MRIs which were done previously of the lumbar spine and pelvis showed significant soft tissue infiltration of bilateral buttocks and hip. The subcutaneous tissue and significant involvement of bilateral gluteus renny muscles and significant anterolateral migration to the hips as well as inferior migration and there was migration up to L2 of the lumbar spine. It was reiterated to the patient in the preop holding area, this could be cosmetically disfiguring, she may have poor scarring, her wound may break down, she may need multiple reconstructive surgeries over the next many years, and her buttocks may come out deformed. I told her she did not think she is at risk for her whole buttocks necrosing, which would require much more radical surgery. The risks and benefits of the proposed operation including but not limited to bleeding, hematoma, infection, seroma, DVT, PE, MO, , necrosis of the skin flaps, open wounds, delayed healing, hypertrophic scarring, keloid scarring, skin necrosis, damage to sensory and motor nerves, difficulty ambulating, chronic pain, and embolization of the silicone to other parts of the body were discussed with the patient and her and all questions were answered. In the preop holding area, I correlated the patient's markings with the physical exam as well as MRI findings. DESCRIPTION OF PROCEDURE: The patient was taken to the operating room. Prior to induction of general anesthesia in the supine position, perioperative antibiotics were given and SCDs were placed on bilateral lower extremities. She was then flipped in prone position after appropriate positioning and padding of the arms and the rest of the body. The markings were made symmetric and reinforced and the areas were prepped and draped in the usual clean and sterile manner. The anus was protected with a blue towel and Ioban dressing. We started the operation by making an incision with a #10 scalpel. We dissected all the way down through the skin and with electrocautery, dissected all the way down to the deep muscle fascia of the gluteus renny muscle and the paraspinal muscles. We then elevated and delayed three fasciocutaneous flaps. We elevated superiorly based lumbar fasciocutaneous flap about 14 cm superiorly and centrally correlating to the MRI exam as well as the physical exam findings of fluctuant tender mass of the lumbar spine going up to the level of L2. This flap was based on perforating vessels of the posterior intercostal arteries. We then elevated and delayed left and right inferiorly-based gluteal fasciocutaneous flaps in a plane just deep to the muscle fascia going down inferiorly about 16 cm and this blood supply was maintained through perforating branches of the inferior gluteal arteries. We then in a plane just deep to Taylor's fascia with electrocautery and scalpel, we dissected off the skin flap from the necrotic soft tissue with a combination of sharp dissection and electrocautery, and there was a large amount of scar tissue, silicone granulomas, and necrotic soft tissues from bilateral buttocks, back, and hip that was removed in this manner. There was 220 cm2 of left back, 220 cm2 of right back, 648 cm2 of left buttock, and 660 cm2 of the right buttock necrotic soft tissue mass that we debrided. After doing this, there were large open wounds that were devoid of soft tissue. We then further delayed the flaps by incising the deep muscle fascia of the above three mentioned fasciocutaneous flaps and they were advanced. After doing this, we noted significant involvement of the gluteus renny muscles laterally and these were debrided with electrocautery as well as scalpel. We also whaley-picked through the muscle any silicone granulomas that we could were removed. There was a very large amount of muscle involvement, about 15% of the gluteus renny muscles that needed to be debrided. There was significant anterolateral migration to the hips. After doing this and ensuring hemostasis with electrocautery, pulse lavage at 2 liters of antibiotic irrigation, and then rechecked for hemostasis. At this point, we were quite pleased with initial debulking. There was about 750 mL of blood loss. The skin flaps appeared to have good capillary refill. At this point, however, based on the large amount of debulking that we did, we decided to stop the operation and ensured hemostasis after advancing and delaying these three fasciocutaneous flaps and we put wound VACs underneath the skin set at 125 mmHg. The patient was flipped over, extubated, transferred to recovery room in stable condition. Aileen Flores M.D. DR: MARK JOB#: [id number] CC:
[2018-12-11] VITALS: BP 108/71
[2018-12-11 04:00] VITALS: BP 96/65
[2018-12-11] MEDS: LR 1000ml 1,000 ML IV SCH (04:54)
[2018-12-11] MEDS: Heparin 5000 units/ml inj SUBQ SCH ×3 (05:28→21:14)
[2018-12-11] MEDS: Ampicillin/Sulbactam Sod 3 GM in NS 110 ML IVPB SCH ×3 (06:19→22:42)
[2018-12-11] MEDS: PCA shift volume MISC SCH ×2 (07:17→19:15)
--- NOTE | 2018-12-11 07:17 | NUR ---
HAND-OFF: Report given to BAM Ocampo.
[2018-12-11 08:00] VITALS: BP 96/64
--- NOTE | 2018-12-11 08:00 | NUR ---
NURSE NOTES: Received report from Claribel KUHN, pt a/a/o x4 laying in bed with no signs of distress or other issues at this time. IV on the right DONIS gauge#22, running LR@125ml/hr. and TRUCK SUPERVISOR with Dilaudid. pt has a wound vac in place with 4 SAIRA drains. pt is on a regular diet, tolerating it well with no signs of n/v. call light with in reach, bed in lowest position, side rales up x2. plan to d/c home with wound vac. I will f/u as needed. I & O's night stocker wound vac:0ml Saira#1: 90ml SAIRA#2: 45ml SAIRA#3: 60ml SAIRA#4: 55ml
[2018-12-11 08:19] LABS: BASOPHILS % (AUTO) 0.4 % (0.0-2.0); EOSINOPHILS % (AUTO) 0.1 % (0.0-3.0); HEMATOCRIT 24.6 % (37.0-47.0); HEMOGLOBIN 8.6 G/DL (12.0-16.0); LYMPHOCYTES % (AUTO) 32.2 % (20.0-45.0); MEAN CORPUSCULAR VOLUME 89 FL (80-99); MONOCYTES % (AUTO) 8.6 % (1.0-10.0); NEUTROPHILS % (AUTO) 58.7 % (45.0-75.0); PLATELET COUNT 198 K/UL (150-450); RED BLOOD COUNT 2.75 M/UL (4.20-5.40); RED CELL DISTRIBUTION WIDTH 11.5 % (11.6-14.8); WHITE BLOOD COUNT 8.7 K/UL (4.8-10.8)
[2018-12-11 08:47] LABS: ANION GAP 7 mmol/L (5-15); BLOOD UREA NITROGEN 12 mg/dL (7-18); CALCIUM 8.2 MG/DL (8.5-10.1); CARBON DIOXIDE 29 MMOL/L (21-32); CHLORIDE 104 MMOL/L (98-107); CREATININE 0.8 MG/DL (0.55-1.30); POTASSIUM 3.8 MMOL/L (3.5-5.1); SODIUM 140 MMOL/L (136-145)
[2018-12-11 12:00] VITALS: BP 93/61
--- NOTE | 2018-12-11 13:38 | General Progress Note ---
Subjective Date patient seen: Dec 11, 2018 Time patient seen: 13:00 ROS Limited/Unobtainable: No Allergies: Coded Allergies: No Known Allergies (Unverified , 12/08/18) Subjective pt doing very well and reports resolution of pre-op local and systemic symptoms including fatigue, paresthesias of bilateral UE and LE, back pain, buttock/hip pain burning and itching; pt (+) OOB AF, HR 95, BP 90/70 H/H 04/15 PE: flaps viable (-) signs infection/collection SAIRA SS appropriate A/P 1. SAIRA teaching 2. cont abx, dvt ppx, hold anti-htn meds until SBP > 100; give 500 cc NS bolus 3. OOB TID 4. only 4 hrs supine/24 hrs/ max 2 hrs at a time; rest of time on sides or stomach; no sitting unless on toilet or in car 5. f/u in one week with Dr. Suárez who is covering for me from now on [id number] 6. d/c home tmw with Cipro 500 BID x 14 days, percocet, iron and colace 7. RN to change to home [place] tmw Objective Last 24 Hour Vital Signs Date Time Temp Pulse Resp B/P (MAP) Pulse Ox O2 Delivery O2 Flow Rate FiO2 12/11/18 08:00 99.4 97 18 96/64 (75) 98 12/11/18 08:00 18 12/11/18 04:00 97.8 84 18 96/65 (75) 94 12/11/18 04:00 18 12/11/18 00:00 20 12/11/18 00:00 98.7 99 20 108/71 (83) 97 12/10/18 21:00 Room Air Room Air 12/10/18 20:45 121/82 12/10/18 20:00 20 12/10/18 20:00 100.0 100 20 121/82 (95) 96 12/10/18 16:00 20 12/10/18 16:00 98.5 94 20 91/60 (70) 95 12/10/18 14:15 97.9 96 20 106/70 (82) 95 Intake and Output 12/10/18 12/11/18 19:00 07:00 Intake Total 700 ml 2370 ml Output Total 1330 ml 250 ml Balance -630 ml 2120 ml Intake Oral 600 ml 1400 ml IV Total 100 ml 970 ml Output Urine Total 300 ml Drainage Total 330 ml 250 ml Estimated Blood Loss 700 ml # Voids 3 3 Laboratory Tests 12/11/18 07:22: White Blood Count 8.7, Red Blood Count 2.75L, Hemoglobin 8.6L, Hematocrit 24.6L , Mean Corpuscular Volume 89, Mean Corpuscular Hemoglobin 31.2H, Mean Corpuscular Hemoglobin Concent 34.9, Red Cell Distribution Width 11.5L, Platelet Count 198, Mean Platelet Volume 6.7, Neutrophils (%) (Auto) 58.7, Lymphocytes (%) (Auto) 32.2, Monocytes (%) (Auto) 8.6, Eosinophils (%) (Auto) 0.1, Basophils (%) (Auto) 0.4, Sodium Level 140, Potassium Level 3.8, Chloride Level 104, Carbon Dioxide Level 29, Anion Gap 7, Blood Urea Nitrogen 12, Creatinine 0.8, Estimat Glomerular Filtration Rate > 60, Glucose Level 138H, Calcium Level 8.2L Height (Feet): 5 Height (Inches): 9.00 Weight (Pounds): 200 Aileen Flores M.D. Dec 11, 2018 13:38
[2018-12-11] MEDS ORDERED: Milk of Magnesia 30ml Ud ORAL PRN (15:30)
[2018-12-11] MEDS ORDERED: Miralax 17gm pkt ORAL PRN (15:45)
[2018-12-11 16:00] VITALS: BP 101/66
--- NOTE | 2018-12-11 19:25 | NUR ---
NURSE NOTES: Report taken from BAM Ocampo. Patient is awake and supine in bed, A&Ox4, family at bedside. No signs of distress on room air. States that she mostly gets pain when she is getting in/out of bed, at the moment she is 0/10. Wound vac, continuous 125mmHg, draining no fluid, instructions to contact MD is fluid drains. SAIRA drain sites, c/d/i changed during day shift. SAIRA drains 1&2 on the Right, 3&4 on the left, all 4 draining serosanguineous fluid, continue to monitor. No further skin issues. MACHINIST SUPERVISOR OUTSIDE pump active, .. IV site c/d/i and patent, running TKO and MACHINIST SUPERVISOR OUTSIDE. Continue to monitor, bed in lowest position, call light within reach.
--- NOTE | 2018-12-11 19:46 | NUR ---
HAND-OFF: Report given to Miguel KUHN, pt in stable condition. - RN endorsed to incoming nurse that pt's home wound vac is delivered at pt's room and is been charged. I&O's SAIRA drain (right) #1: 80 ml #2: 50 ml SAIRA drain (left) #3: 50ml #4: 30ml Wound Vac: 0ml drainage
[2018-12-11 20:00] VITALS: BP 115/79
[2018-12-11] MEDS: Lisinopril 20mg tab ORAL SCH (21:02)
[2018-12-12 00:04] VITALS: BP 104/73
[2018-12-12 04:00] VITALS: BP 110/76
[2018-12-12] MEDS: Heparin 5000 units/ml inj SUBQ SCH ×3 (05:46→22:09)
[2018-12-12] MEDS: Ampicillin/Sulbactam Sod 3 GM in NS 110 ML IVPB SCH ×3 (06:41→22:24)
[2018-12-12] MEDS: PCA shift volume MISC SCH (07:00)
[2018-12-12 07:43] LABS: BASOPHILS % (AUTO) 0.9 % (0.0-2.0); EOSINOPHILS % (AUTO) 0.2 % (0.0-3.0); HEMATOCRIT 25.6 % (37.0-47.0); HEMOGLOBIN 8.6 G/DL (12.0-16.0); LYMPHOCYTES % (AUTO) 41.5 % (20.0-45.0); MEAN CORPUSCULAR VOLUME 92 FL (80-99); MONOCYTES % (AUTO) 8.1 % (1.0-10.0); NEUTROPHILS % (AUTO) 49.3 % (45.0-75.0); PLATELET COUNT 209 K/UL (150-450); RED CELL DISTRIBUTION WIDTH 11.9 % (11.6-14.8); WHITE BLOOD COUNT 8.3 K/UL (4.8-10.8)
--- NOTE | 2018-12-12 07:44 | NUR ---
HAND-OFF: Report given to BAM Ramirez. Patient is awake and in bed, VS stable. Possible D/C today.
[2018-12-12 07:53] LABS: ANION GAP 6 mmol/L (5-15); BLOOD UREA NITROGEN 10 mg/dL (7-18); CALCIUM 8.8 MG/DL (8.5-10.1); CARBON DIOXIDE 29 MMOL/L (21-32); CHLORIDE 107 MMOL/L (98-107); CREATININE 0.7 MG/DL (0.55-1.30); POTASSIUM 4.3 MMOL/L (3.5-5.1); SODIUM 142 MMOL/L (136-145)
[2018-12-12 08:00] VITALS: BP 103/67
--- NOTE | 2018-12-12 11:01 | NUR ---
CASE MANAGEMENT:REVIEW 12/11/18 SI: POD #4 AND POD #2 S/P ABIGAIL BUTTOCK DEBRIDEMENT, FLAP DELAY AND WOUND VAC PLACEMENT 99.4 97 18 96/64 98% ON RA H/H-10.0/29.4 IS: SALES OPERATIONS COORDINATOR DILAUDID IV AMPICILLIN Q8HRS LISINOPRIL PO QHS HEPARIN SQ Q8HRS NORVASC PO QD : MED/SURG STATUS 3 [facility] FAXED TO [facility] F: [phone] WAITING A FIRE CHIEF'S AIDE TO CALL US WITH AUTHORIZATION
--- NOTE | 2018-12-12 11:15 | NUR ---
INSURANCE FAXED TO [facility] F: [phone] REF #[id number] RECEIVED CALL FROM [facility] STATING STAY AUTH'D THRU 12/10/18 THUS FAR
[2018-12-12 12:00] VITALS: BP 105/73
[2018-12-12 16:02] VITALS: BP 108/73
--- NOTE | 2018-12-12 16:28 | NUR ---
NURSE NOTES: Pt up and ambulatory with assistance. Wound Vac empty at this time continuos drainage to nat drain serosanguineous. Provided with antibiotic, no side effect noted or reported
--- NOTE | 2018-12-12 17:37 | NUR ---
NURSE NOTES: Report given to Yeni , discharge pending. Pt alert ambulated x 2 with global technical writer
--- NOTE | 2018-12-12 17:53 | NUR ---
NURSE NOTES: Received report from Ximena KUHN. patient is awake alert and oriented, no acute distress noted. Ambulatory with steady gait. SAIRA's compressed x4, wound vac dressing clean and dry. Will continue to monitor.
--- NOTE | 2018-12-12 18:32 | Internal Med Progress Note ---
Subjective Physician Name Bruno Dinero Attending Physician Aileen Flores M.D. Current Medications Medications (Trade) Dose Ordered Sig/Abril Route PRN Reason Start Time Stop Time Status Last Admin Dose Admin Acetaminophen (Tylenol) 325 mg Q6H PRN ORAL Mild Pain/Temp > 100.5 12/08/18 20:00 01/07/19 19:59 12/12/18 05:43 Amlodipine Besylate (Norvasc) 5 mg DAILY ORAL 12/09/18 09:00 01/08/19 08:59 12/12/18 09:42 Ampicillin Sodium/ Sulbactam Sodium 3 gm/Sodium Chloride 110 ml @ 220 mls/hr Q8H IVPB 12/08/18 15:00 12/15/18 14:59 12/12/18 15:24 Bisacodyl (Dulcolax) 10 mg DAILYPRN PRN RECTAL Constipation 12/11/18 15:30 01/10/19 15:29 Heparin Sodium (Porcine) (Heparin 5000 units/ml) 5,000 units EVERY 8 HOURS SUBQ 12/08/18 22:00 01/07/19 21:59 12/12/18 15:25 Lisinopril (Prinivil) 20 mg BEDTIME ORAL 12/08/18 21:00 01/08/19 08:59 12/11/18 21:02 Magnesium Hydroxide (Mom) 30 ml DAILYPRN PRN ORAL Constipation 12/11/18 15:30 01/10/19 15:29 12/11/18 16:12 Polyethylene Glycol (Miralax) 17 gm DAILYPRN PRN ORAL Constipation 12/11/18 15:45 01/07/19 19:59 Allergies: Coded Allergies: No Known Allergies (Unverified , 12/08/18) All Systems: reviewed and negative except above - mild lower back pain Objective Last Vital Signs Date Time Temp Pulse Resp B/P (MAP) Pulse Ox O2 Delivery O2 Flow Rate FiO2 12/12/18 16:02 98.7 92 18 108/73 (85) 99 12/12/18 09:00 Room Air Room Air 12/10/18 12:15 3.0 3.0 General Appearance: WD/WN, no apparent distress EENT: PERRL/EOMI, normal ENT inspection Neck: normal alignment, supple Cardiovascular: normal rate, regular rhythm Respiratory/Chest: lungs clear, normal breath sounds Abdomen: non tender, soft Extremities: normal range of motion, non-tender Edema: trace edema, mild edema Laboratory Tests Test 12/12/18 05:28 White Blood Count 8.3 K/UL (4.8-10.8) Red Blood Count 2.80 M/UL (4.20-5.40) L Hemoglobin 8.6 G/DL (12.0-16.0) L Hematocrit 25.6 % (37.0-47.0) L Mean Corpuscular Volume 92 FL (80-99) Mean Corpuscular Hemoglobin 30.8 PG (27.0-31.0) Mean Corpuscular Hemoglobin Concent 33.6 G/DL (32.0-36.0) Red Cell Distribution Width 11.9 % (11.6-14.8) Platelet Count 209 K/UL (150-450) Mean Platelet Volume 5.8 FL (6.5-10.1) L Neutrophils (%) (Auto) 49.3 % (45.0-75.0) Lymphocytes (%) (Auto) 41.5 % (20.0-45.0) Monocytes (%) (Auto) 8.1 % (1.0-10.0) Eosinophils (%) (Auto) 0.2 % (0.0-3.0) Basophils (%) (Auto) 0.9 % (0.0-2.0) Sodium Level 142 MMOL/L (136-145) Potassium Level 4.3 MMOL/L (3.5-5.1) Chloride Level 107 MMOL/L (98-107) Carbon Dioxide Level 29 MMOL/L (21-32) Anion Gap 6 mmol/L (5-15) Blood Urea Nitrogen 10 mg/dL (7-18) Creatinine 0.7 MG/DL (0.55-1.30) Estimat Glomerular Filtration Rate > 60 mL/min (>60) Glucose Level 105 MG/DL (74-106) Calcium Level 8.8 MG/DL (8.5-10.1) Intake and Output 12/11/18 12/12/18 19:00 07:00 Intake Total 1500 ml 1200 ml Output Total 213 ml 235 ml Balance 1287 ml 965 ml Intake Oral 1500 ml 1200 ml Output Urine Total 3 ml Drainage Total 210 ml 235 ml # Voids 2 3 Assessment/Plan Assessment/Plan ASSESSMENT: 1. Necrotic soft tissue secondary to bilateral buttock silicone injection surgery in 2008 status post debridement of bilateral buttock/back/hips and necrotic soft tissue and flaps delay and wound VAC placement on 12/08/2018. 2. Hypertension. 3. Anxiety. 4. Sexual reassignment surgery. 5. Cholecystectomy. 6. BRIDGET PLAN: 1. Medsurg 2. Plan for debridement on Wednesday. 3. Monitor wound VAC output 4. Off POKER SUPERVISOR pump 5. Stool softener as needed. 6. DVT prophylaxis with heparin. 7. DC lisinopril bc of hypotension; held amlodipine 8. Ambien for her insomnia. 9. Antibiotics-ampicillin/sulbactam. 10. Intravenous fluids-Lactate Ringers. 11. Plastic surgery recommendations appreciated. 12. CPAP QHS DC planning tomorrow DR Shah this weekend Cipro 500mg PO BID x 1 wk Bruno Irvin MD Dec 12, 2018 18:32
--- NOTE | 2018-12-12 18:50 | Discharge Instructions ---
Discharge Instructions Discharge Instructions Follow up with: Dr. Shah on weekend Call MD/Return to Hospital if: fevers or worsening symptoms Diet: regular Activity: as tolerated, other - instructions provided For Congestive Heart Failure Reminder Report to your physician any weight gain of 5 pounds or more in one week. Bruno Dinero MD Dec 12, 2018 18:50
--- NOTE | 2018-12-12 19:27 | NUR ---
HAND-OFF: Report given to Miguel KUHN. Patient is in stable condition.
--- NOTE | 2018-12-12 19:30 | NUR ---
NURSE NOTES: Report taken from BAM Alberts. Patient awake and prone in bed, A&Ox4. No signs of distress on room air. Is having some pain around SAIRA drain incision sites, 11/30, will continue to assess and monitor pain. SAIRA drains (4), c/d/i draining serosanguineous fluid, monitor and measure drains Q4 per order. Continuous wound vac, 125mmHg, no drainage, contact MD if drainage occurs. IV site c/d/i and patent, states she does get some burning when flushing or running fluids, but it ceases after a short time. Site is not swollen or painful to the touch. MD planning D/C pending morning labs. Continue to monitor, bed in lowest position, call light within reach.
[2018-12-12 20:00] VITALS: BP 106/65
[2018-12-12] MEDS: oxyCODONE HCL/Acetaminophen 5/325mg ORAL PRN (22:24)
--- NOTE | 2018-12-12 22:36 | NUR ---
NURSE NOTES: While I was in the patients room, it was noted that her 1500 antibiotic was not run. The IV was not connected and the bag was full. Charge nurse Cinthia notified, incident report filed
[2018-12-13] VITALS: BP 126/73
[2018-12-13 04:00] VITALS: BP 109/71
[2018-12-13] MEDS: Heparin 5000 units/ml inj SUBQ SCH ×2 (06:11→14:32)
[2018-12-13] MEDS: Ampicillin/Sulbactam Sod 3 GM in NS 110 ML IVPB SCH ×2 (06:12→14:28)
[2018-12-13] MEDS: oxyCODONE HCL/Acetaminophen 5/325mg ORAL PRN ×2 (06:24→12:48)
[2018-12-13 06:35] LABS: BASOPHILS % (AUTO) 0.7 % (0.0-2.0); EOSINOPHILS % (AUTO) 0.7 % (0.0-3.0); HEMATOCRIT 25.6 % (37.0-47.0); HEMOGLOBIN 8.8 G/DL (12.0-16.0); LYMPHOCYTES % (AUTO) 47.2 % (20.0-45.0); MEAN CORPUSCULAR VOLUME 91 FL (80-99); MONOCYTES % (AUTO) 8.5 % (1.0-10.0); NEUTROPHILS % (AUTO) 42.9 % (45.0-75.0); PLATELET COUNT 232 K/UL (150-450); RED BLOOD COUNT 2.82 M/UL (4.20-5.40); WHITE BLOOD COUNT 7.2 K/UL (4.8-10.8)
[2018-12-13 06:50] LABS: ANION GAP 8 mmol/L (5-15); BLOOD UREA NITROGEN 15 mg/dL (7-18); CALCIUM 8.6 MG/DL (8.5-10.1); CARBON DIOXIDE 28 MMOL/L (21-32); CHLORIDE 104 MMOL/L (98-107); CREATININE 0.7 MG/DL (0.55-1.30); POTASSIUM 4.5 MMOL/L (3.5-5.1); SODIUM 140 MMOL/L (136-145)
--- NOTE | 2018-12-13 07:33 | NUR ---
HAND-OFF: Report given to BAM Bueno. Patient is asleep, at bedside. VS stable.
--- NOTE | 2018-12-13 07:45 | NUR ---
NURSE NOTES: Pt asleep, is at bedside. Has pending orders for discharge . Follow required for drains
[2018-12-13 08:00] VITALS: BP 111/72
--- NOTE | 2018-12-13 09:16 | NUR ---
NURSE NOTES: Pt has orders for discharge from Dr Kramer. Dr Suárez phoned for follow up appointment
[2018-12-13] MEDS ORDERED: PERCOCET 5-3251 EACH ORAL (11:35)
[2018-12-13] MEDS ORDERED: CIPRO250 MG ORAL (11:37)
--- NOTE | 2018-12-13 11:49 | NUR ---
*-* INSURANCE *-* UPDATED CLINICALS AND REVIEWS HAVE BEEN FAXED TO: [facility] REF# [id number] F:[phone]
[2018-12-13 12:00] VITALS: BP 110/65
--- NOTE | 2018-12-13 19:00 | NUR ---
NURSE NOTES: Pt discharged provided with discharge instructions to include Drain Care , verbalized understanding. Verbalized understanding to not shower or bathe until follow up with Dr. Suárez. Phone number provided in discharge packet. . IV removed . Bandages to lower back clean intact. No drainage to wound vac. Drain 1 10cc drain 2 10 cc drain 3 10cc and drain 4 20 cc . Did not have any possible side effects related to antibiotic use. accompanying pt. Left with belongings. Surrounding skin to [facility] area with no presence of swelling or redness, discharge gradually running serous from serosanguineous
--- NOTE | 2018-12-14 13:08 | Discharge Summary ---
Discharge Summary Hospital Course Date of Admission Dec 08, 2018 at 06:17 Date of Discharge Dec 13, 2018 at 18:57 Admitting Diagnosis bilateral buttock , hip and back necrotic soft tissue/cellulitis Reason for Hospitalization: elective surgery ANGI You is a 38 year old female who was admitted on Dec 08, 2018 at 06:17 for bilateral buttock, hip and back necrotic soft tissue/Cellulitis due to silicone injections on 2007. Patient was admitted for elective surgery. The risks and benefits of the surgery were discussed with patient extensively. Patient was consented for surgery. Consultations Dr Dinero -IM Procedures s/p 12/08/[address] Flores 1. Staged partial removal of foreign material from bilateral buttocks, hips, and back. 2. Elevation and delay of right inferiorly based gluteal fasciocutaneous flap. 3. Elevation and delay of left inferiorly based gluteal fasciocutaneous flap. 4. Elevation and delay of lumbar spine fasciocutaneous flap. 5. Radical resection of 660 cm2 of right buttock necrotic soft tissue mass. 6. Radical resection of 648 cm2 of left buttock necrotic soft tissue mass. 7. Radical resection of 220 cm2 of right back necrotic soft tissue mass. 8. Radical resection of 220 cm2 of left back necrotic soft tissue mass. 9. Extensive debridement of the necrotic bilateral gluteus renny muscles. 10. Pulse jet lavage irrigation to bilateral buttocks. 11. Wound VAC placement to bilateral buttocks. s/p 12/10/[address] Flores 1. Staged partial removal of foreign bodies from bilateral buttocks and hips. 2. Radical resection of 308 square centimeters of left hip necrotic soft tissue tumor like mass. 3. Radical resection of 560 square centimeters of right hip necrotic soft tissue tumor like mass. 4. Extensive debridement of bilateral gluteus renny necrotic muscles. 5. Lumbar spine fasciocutaneous advancement flap closure. 6. Right gluteal fasciocutaneous advancement flap closure. 7. Left gluteal fasciocutaneous advancement flap closure. 8. Complex closure of 67 cm of open back wound. 9. Preven incisional wound VAC placement. 10. Pulse jet lavage irrigation to bilateral buttocks open wounds. Hospital Course Patient undergone staged procedure on 12/08 and 12/10/18 s/p 12/08/18 debridement of bilateral buttock/back/hip necrotic soft tissue and flap delay and wound vac placement Patient reported significant resolution of preoperative symptoms, including both local and systemic symptoms Patient was treated with IV antibiotic and wound VAC therapy Pain management was addressed Patient was taken back to operating room on 12/10 for a planned second stage for further debridement of extensive amount of necrotic soft tissue from bilateral buttocks and hips as well as a fasciocutaneous advancement flap closure over drains 4 SAIRA were placed : 2 in the right buttock and 2 in the left buttock Postoperative course of recovery was uneventful Pain management initially provided with HAT BRUSHER MACHINE DVT prophylaxis provided Home medication resumed, including calcium channel agustin and ARNOLD inhibitor for hypertension Hemodynamic status was closely monitored and remained stable Patient was on empiric antibiotic and IV fluids HAT BRUSHER MACHINE was discontinued and changed to oral analgesic Pain management was addressed and pain was controlled Bowel regimen instituted Flaps were viable VACs in place and functional No signs of infection or fluid collection Neves catheter was subsequently discontinued , voided freely Patient was out of bed as tolerated Incentive spirometer was encouraged while in the bed. Patient was instructed on care of SAIRA drains at home Patient was instructed to be only 4 hours/in 24 hrs in supine position with maximum 2 hours at a time; rest of the time lying on the side or stomach; no seating, unless on toilet or in the car Patient to follow-up with plastic surgeon in 1 week. Patient was ready for discharge: hemodynamically stable, no signs of infection, tolerated diet, pain controlled, voided freely, ambulated. VACs functional, flaps viable. Patient discharged home with oral antibiotic for 14 days, analgesia,m iron and Colace. Follow up with surgeon in 1 week. FINAL DIAGNOSIS 1. 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 2. Chronic cellulitis of bilateral buttocks. 3. s/p 12/08/18 debridement of bilateral buttock/back/hip necrotic soft tissue and flap delay and wound vac placement 4. s/p 12/10/18 debridement of bilateral buttock/hip necrotic soft tissue and advancement flap closure 5. Hypertension. 6. Anxiety. 7. s/p Sexual reassignment surgery. 8. s/p Cholecystectomy. Discharge Medications Continued Medications: Acetaminophen* (Tylenol Extra Strength*) 500 Mg Tablet 325 MG ORAL Q6H PRN for Mild Pain/Temp > 100.5, TAB 0 Refills (This prescription has been renewed) Zolpidem Tartrate* (Ambien*) 10 Mg Tablet 10 MG ORAL HS PRN for Insomnia, TAB (This prescription has been renewed) Discontinued Medications: Amlodipine Besylate* (Amlodipine Besylate*) 5 Mg Tablet 5 MG ORAL DAILY, TAB Diphenhydramine HCl (Z-Sleep) 25 Mg Capsule 50 MG PO NEEDED, CAP Lisinopril* (Lisinopril*) 10 Mg Tablet 20 MG ORAL DAILY, TAB Discharge Condition Upon Discharge: stable Discharge Disposition Patient was discharged to Home (01) Discharge Instructions Discharge Instructions Follow up with: Dr. Shah on weekend Call MD/Return to Hospital if: fevers or worsening symptoms Activity: as tolerated, other - instructions provided Special Instructions I have been assigned to complete a D/C Summary on this account. I was not involved in the patient management Lisa Blum NP Dec 14, 2018 13:08
== END 2018-12-13 18:57 | disposition home or self-care (01) | DRG 574 ==
LOC: SDSOVERFLO 06:17 → 3E 13:28
PROC: 0JB70ZZ Excision of Back Subcutaneous Tissue and Fascia, Open Approach (ICD-10-PCS; principal; 2018-12-08 07:30)
PROC: 0JB90ZZ Excision of Buttock Subcutaneous Tissue and Fascia, Open Approach (ICD-10-PCS; principal; 2018-12-08 07:30)
PROC: 0KCQ0ZZ Extirpation of Matter from Right Upper Leg Muscle, Open Approach (ICD-10-PCS; principal; 2018-12-08 07:30)
PROC: 0J890ZZ Division of Buttock Subcutaneous Tissue and Fascia, Open Approach (ICD-10-PCS; principal; 2018-12-08 07:30)
PROC: 0KBP0ZZ Excision of Left Hip Muscle, Open Approach (ICD-10-PCS; principal; 2018-12-08 07:30)
PROC: 2W1NX6Z Compression of Right Upper Leg using Pressure Dressing (ICD-10-PCS; principal; 2018-12-08 07:30)
PROC: 0J870ZZ Division of Back Subcutaneous Tissue and Fascia, Open Approach (ICD-10-PCS; principal; 2018-12-08 07:30)
PROC: 0KCP0ZZ Extirpation of Matter from Left Hip Muscle, Open Approach (ICD-10-PCS; principal; 2018-12-08 07:30)
PROC: 2W1PX6Z Compression of Left Upper Leg using Pressure Dressing (ICD-10-PCS; principal; 2018-12-08 07:30)
PROC: 0KCN0ZZ Extirpation of Matter from Right Hip Muscle, Open Approach (ICD-10-PCS; principal; 2018-12-08 07:30)
PROC: 0KCR0ZZ Extirpation of Matter from Left Upper Leg Muscle, Open Approach (ICD-10-PCS; principal; 2018-12-08 07:30)
PROC: 0KCF0ZZ Extirpation of Matter from Right Trunk Muscle, Open Approach (ICD-10-PCS; principal; 2018-12-08 07:30)
PROC: 0KCG0ZZ Extirpation of Matter from Left Trunk Muscle, Open Approach (ICD-10-PCS; principal; 2018-12-08 07:30)
PROC: 0KBN0ZZ Excision of Right Hip Muscle, Open Approach (ICD-10-PCS; principal; 2018-12-08 07:30)
PROC: 0JX70ZC Transfer Back Subcutaneous Tissue and Fascia with Skin, Subcutaneous Tissue and Fascia, Open Approach (ICD-10-PCS; 2018-12-10)
PROC: 0KBN0ZZ Excision of Right Hip Muscle, Open Approach (ICD-10-PCS; 2018-12-10)
PROC: 0JBM0ZZ Excision of Left Upper Leg Subcutaneous Tissue and Fascia, Open Approach (ICD-10-PCS; 2018-12-10)
PROC: 0KBP0ZZ Excision of Left Hip Muscle, Open Approach (ICD-10-PCS; 2018-12-10)
PROC: 0JX90ZC Transfer Buttock Subcutaneous Tissue and Fascia with Skin, Subcutaneous Tissue and Fascia, Open Approach (ICD-10-PCS; 2018-12-10)
PROC: 0JBL0ZZ Excision of Right Upper Leg Subcutaneous Tissue and Fascia, Open Approach (ICD-10-PCS; 2018-12-10)
PROC: 2W1NX6Z Compression of Right Upper Leg using Pressure Dressing (ICD-10-PCS; 2018-12-10)
PROC: 2W1PX6Z Compression of Left Upper Leg using Pressure Dressing (ICD-10-PCS; 2018-12-10)
DX: L03.317 Cellulitis of buttock (principal); I96 Gangrene, not elsewhere classified; M79.5 Residual foreign body in soft tissue; F41.9 Anxiety disorder, unspecified; Z87.890 Personal history of sex reassignment; R53.82 Chronic fatigue, unspecified; R20.2 Paresthesia of skin; G47.33 Obstructive sleep apnea (adult) (pediatric); I10 Essential (primary) hypertension
CPT/HCPCS: 36415; 80048; 81025; 85025; 86850; 86900; 86901; 86920; 87081; 94003; 94150; J2250; J2405; J2710

== ENCOUNTER 2019-01-24 20:59 | Inpatient (IN) | payer BC ==
[~2019-01-24] VITALS: Ht 172.7 cm; Wt 88.0 kg
[~2019-01-24 20:59] MED LIST changes: +CIPRO250 MG ORAL; +PERCOCET 5-3251 EACH ORAL
[2019-01-24] MEDS ORDERED: LISINOPRIL20 MG ORAL (21:07)
[2019-01-24] MEDS ORDERED: OXYCODONE-ACET1 EAC3 ORAL (21:07)
[2019-01-24] MEDS ORDERED: AMLODIPINE BESYL5 MG ORAL (21:07)
[2019-01-24] MEDS ORDERED: CLINDAMYCIN HC300 MG ORAL (21:07)
[2019-01-24 21:10] VITALS: BP 128/91
[2019-01-24] MEDS ORDERED: Isovue-300 100ml vial INJ PRN (21:15)
[2019-01-24] MEDS: Vancomycin 1.5gm Premix 275 ML IVPB SCH ×3 (21:15→23:15)
[2019-01-24] MEDS ORDERED: Piperacillin/Tazobactam 3.375 GM in NS 110 ML IVPB ONE (21:15)
--- NOTE | 2019-01-24 21:17 | Emergency Room Report ---
History of Present Illness General Chief Complaint: Wound Recheck/Suture Removal Source: Patient Present Illness HPI This is a 38-year-old transgender female who presents with chief complaint of wound check and fever and pain. About several weeks ago, she had surgical removal of her silicone implants of her buttocks. It got infected and necrotic. It was removed. She had a large seroma to the right buttock. She still has a SAIRA drain. Yesterday she started having pain and warmth to that area. She saw Dr. Lemus for follow-up in he did not think it was infected. The fluid is still serous in nature. She has increasing pain and now more warmth to that area. Pain is 7 out of 10. Worse with palpation. Better with pain medication. No systemic fever. No nausea no vomiting. Her plastic surgeon ask her to come in to be evaluated. Allergies: Coded Allergies: No Known Allergies (Unverified , 12/08/18) Patient History Past Medical History: see triage record, old chart reviewed Past Surgical History: other Pertinent Family History: none Social History: Denies: smoking Last Menstrual Period: NA Now: No Immunizations: other Reviewed Nursing Documentation: PMH: Agreed; PSxH: Agreed Nursing Documentation-PMH Hx Cardiac Problems: Yes - SUPERFICIAL BLOOD CLOT LEFT LEG AUG 2018 Hx Hypertension: Yes Hx Cancer: No Hx Gastrointestinal Problems: Yes - gall bladder removal Hx Neurological Problems: No Review of Systems Eye: Denies: eye pain, blurred vision ENT: Denies: ear pain, nose congestion, throat swelling Respiratory: Denies: cough, shortness of breath Cardiovascular: Denies: chest pain, palpitations Gastrointestinal: Denies: abdominal pain, diarrhea, nausea, vomiting Musculoskeletal: Denies: back pain, joint pain Skin: Denies: rash Neurological: Denies: headache, numbness Endocrine: Denies: increased thirst, increased urine Hematologic/Lymphatic: Denies: easy bruising All Other Systems: negative except mentioned in HPI Physical Exam Vital Signs Date Time Temp Pulse Resp B/P (MAP) Pulse Ox O2 Delivery O2 Flow Rate FiO2 01/24/19 21:01 98.6 135 16 128/91 (103) 96 Room Air vitals with tachycardia Sp02 EP Interpretation: reviewed, normal General Appearance: well appearing, no apparent distress, alert Head: normocephalic, atraumatic Eyes: bilateral eye PERRL, bilateral eye EOMI ENT: hearing grossly normal, normal pharynx Neck: full range of motion, supple, no meningismus Respiratory: chest non-tender, lungs clear, normal breath sounds Cardiovascular #1: regular rate, rhythm, no murmur Gastrointestinal: normal bowel sounds, non tender, no mass, no organomegaly, no bruit, non-distended Musculoskeletal: back normal, gait/station normal, normal range of motion, other - Right buttock: Warm to the touch. Mildly tender. SAIRA drain with serous cloudy fluid. No redness. No fluctuant. Psychiatric: mood/affect normal Skin: warm/dry Medical Decision Making Diagnostic Impression: Primary Impression: Infected seroma, postoperative ER Course Patient presents with infected seroma. CT scan social fluid collection. Now with warmth and tenderness over that area is concerning for infection. She is currently taking clindamycin already. I wrote for Zosyn and vancomycin. Heart rate was elevated and was better after Tylenol and IV fluid. Maybe early sepsis versus SIRS response. I discussed the case with Dr. Dinero who will admit. He said that plastic surgeon already spoke with him. Rhythm Strip Diag. Results EP Interpretation: yes Rate: 110 Rhythm: NSR, no PVC's, no ectopy CT/MRI/US Diagnostic Results CT/MRI/US Diagnostic Results : Imaging Test Ordered: CT abdomen and pelvis Impression Read by radiologist. Fluid collection in right hip gluteal area. Fluid collection in the left gluteal area. Last Vital Signs Date Time Temp Pulse Resp B/P (MAP) Pulse Ox O2 Delivery O2 Flow Rate FiO2 01/24/19 21:01 98.6 135 16 128/91 (103) 96 Room Air Status: improved Disposition: ADMITTED INPATIENT Condition: Serious Chase Rodrigues MD Jan 24, 2019 21:17
[2019-01-24 21:45] LABS: APPEARANCE,URINE CLEAR; BILIRUBIN, URINE NEGATIVE (NEGATIVE); COLOR,URINE PALE YELLOW; GLUCOSE, URINE (UA) NEGATIVE (NEGATIVE); KETONES,URINE NEGATIVE (NEGATIVE); LEUKOCYTE ESTERASE ,URINE 2+ (NEGATIVE); NITRITE,URINE NEGATIVE (NEGATIVE); PH,URINE 5 (4.5-8.0); PROTEIN,URINE NEGATIVE (NEGATIVE); UROBILINOGEN,URINE NORMAL MG/DL (0.0-1.0)
[2019-01-24] MEDS ORDERED: Vancomycin 1.5gm vial IVPB ONE (22:07)
[2019-01-24] MEDS ORDERED: Zosyn 3.375gm inj ONE (22:09)
[2019-01-24 22:10] LABS: ANION GAP 8 mmol/L (5-15); BLOOD UREA NITROGEN 14 mg/dL (7-18); CALCIUM 9.5 MG/DL (8.5-10.1); CARBON DIOXIDE 27 MMOL/L (21-32); CHLORIDE 100 MMOL/L (98-107); POTASSIUM 4.1 MMOL/L (3.5-5.1); SODIUM 135 MMOL/L (136-145)
[2019-01-24 22:15] LABS: CREATINE KINASE 48 U/L (26-308)
[2019-01-24 22:17] LABS: BASOPHILS % (AUTO) 0.8 % (0.0-2.0); EOSINOPHILS % (AUTO) 0.2 % (0.0-3.0); HEMOGLOBIN 13.4 G/DL (12.0-16.0); LYMPHOCYTES % (AUTO) 22.7 % (20.0-45.0); MEAN CORPUSCULAR VOLUME 84 FL (80-99); MONOCYTES % (AUTO) 7.6 % (1.0-10.0); NEUTROPHILS % (AUTO) 68.6 % (45.0-75.0); PLATELET COUNT 439 K/UL (150-450); RED BLOOD COUNT 4.64 M/UL (4.20-5.40); RED CELL DISTRIBUTION WIDTH 10.8 % (11.6-14.8); WHITE BLOOD COUNT 12.7 K/UL (4.8-10.8)
[2019-01-24] MEDS ORDERED: Acetaminophen 500mg (ES) tab ORAL ONE (22:30)
[2019-01-24] MEDS ORDERED: DiphenhydrAMINE 50mg/ml Inj IVP ONE (23:30)
[2019-01-25] VITALS (18 sets, daily range): BP systolic 106–124; BP diastolic 72–88
[2019-01-25] MEDS ORDERED: Zolpidem 5mg tab ORAL PRN ×2 (01:00→18:45)
[2019-01-25] MEDS ORDERED: Vancomycin 1 GM in D5W 275 ML IVPB SCH (06:00)
[2019-01-25] MEDS: Piperacillin/Tazobactam 3.375 GM in NS 110 ML IVPB SCH ×2 (06:11→17:04)
[2019-01-25 08:54] LABS: INR 0.9 (0.9-1.1)
[2019-01-25] MEDS: Lisinopril 20mg tab ORAL SCH ×2 (09:00→09:50)
--- NOTE | 2019-01-25 09:33 | Diagnostic Imaging Report ---
Indication: Fever. History of removal of infected gluteal implants Technique: Continuous helical transaxial imaging of the pelvis was obtained from the iliac crest to the pubic symphysis. Coronal 2-D reformats were also obtained. Study obtained in a Siemens sensation [address] Intravenous non-ionic contrast was administered. Total Dose length Product (DLP): 595.[address] Dose Index Volume (CTDIvol): 18.33 mGy Comparison: None Findings: There is a 6 x 3 8 cm circumscribed fluid collection lateral to the right hip. There is a SAIRA drain at the periphery of this collection possibly traversing the collection. Findings consistent with postoperative fluid collection and may be a seroma. Obviously, infection of this collection is not excludable by imaging. There is a smaller lower left lateral hip collection measuring about 6 x 1.5 x 5 cm. There is no intrapelvic free fluid. Appendix is noted and unremarkable. IMPRESSION: Bilateral, superficial subcutaneous fluid collections consistent with postoperative fluid collection such as seromas; superimposed infection not excluded. SAIRA drain noted on the right traversing part of the right fluid collection. [facility] has communicated the preliminary results to the Emergency Department. Their findings are largely concordant with this report. The CT scanner at [facility] is accredited by the [employer] and the scans are performed using dose optimization techniques as appropriate to a performed exam including Automatic Exposure control.
[2019-01-25] MEDS: Doxycycline 100mg in D5W 110ml IV SCH ×3 (13:00→22:40)
[2019-01-25] MEDS ORDERED: Lidocaine 1% Plain 30 ml INJ PRN (13:15)
[2019-01-25] MEDS ORDERED: Midazolam 2mg/2ml Inj ONE (14:23)
[2019-01-25] MEDS ORDERED: fentaNYL 100 mcg/2 mL IV ONE (14:23)
--- NOTE | 2019-01-25 15:07 | Pre-Procedure Note/Attestation ---
Pre-Procedure Note/Attestation Complete Prior to Procedure Planned Procedure: right Procedure Narrative: aspiration and drainage of right lateral seroma Indications for Procedure Pre-Operative Diagnosis: infected seroma Attestation I attest that I discussed the nature of the procedure; its benefits; risks and complications; and alternatives (and the risks and benefits of such alternatives ), prior to the procedure, with the patient (or the patient's legal registration representative). I attest that, if there was a reasonable possibility of needing a blood transfusion, the patient (or the patient's legal registration representative) was given the [facility] standardized written summary, pursuant to the [place] Blood Safety Act ([place] Health and Safety Code # 1645, as amended). I attest that I re-evaluated the patient just prior to the surgery and that there has been no change in the patient's H&P, except as documented below: Wilfredo Avery MD Jan 25, 2019 15:07
--- NOTE | 2019-01-25 15:11 | Moderate Sedation - Procedural ---
Moderate Sedation HPI Chief Complaint right hip area pain, redness swelling Home Medication Reported Medications Lisinopril (LISINOPRIL*) 20 Mg Tablet, 20 MG ORAL DAILY, TAB 01/24/19 Oxycodone Hcl/Acetaminophen 5-325* (OXYCODONE-ACETAMINOPHEN 5-325*) 1 Each Tablet, 1 TAB ORAL Q6H PRN for For Pain, #10 TAB 0 Refills 01/24/19 Clindamycin Hcl (CLINDAMYCIN HCL) 300 Mg Capsule, 300 MG ORAL FOUR TIMES A DAY, CAP 01/24/19 Amlodipine Besylate* (AMLODIPINE BESYLATE*) 5 Mg Tablet, 5 MG ORAL DAILY, TAB 01/24/19 Ciprofloxacin HCl (Cipro) 250 Mg Tablet, 500 MG ORAL EVERY 12 HOURS, #60 TAB 12/13/18 Oxycodone/Acetaminophen 5-325* (PERCOCET 5-325 MG TABLET*) 1 Each Tablet, 1 TAB ORAL Q6H PRN for For Pain, #30 TAB 0 Refills 12/13/18 Zolpidem Tartrate* (AMBIEN*) 10 Mg Tablet, 10 MG ORAL HS PRN for Insomnia, TAB 12/07/18 Acetaminophen* (TYLENOL EXTRA STRENGTH*) 500 Mg Tablet, 325 MG ORAL Q6H PRN for Mild Pain/Temp > 100.5, TAB 0 Refills 12/07/18 Patient History Allergies: Coded Allergies: VANCOMYCIN (Verified Adverse Reaction, Unknown, Itching, 01/25/19) Pre-Procedural Mod Sedation Date: Jan 25, 2019 Pre-Assessment Time: 15:10 Vital Signs WNL Airway Assessment (Malampati): II Heart: normal Lungs: normal Abdomen: normal Extremities: normal Pre-op Diagnosis: infected seroma Evaluation Hx of untoward rxns to mod sed: No Procedures/Plans: Radiology Plan for Moderate Sedation: Midazolam, Fentanyl ASA Score: II Informed Consent The nature of the procedure/sedation; its benefits; risks and complications; and alternatives (and the risks and benefits of such alternatives) were discussed with the patient (or their legal accounts payable representative), prior to the procedure. All questions were answered to the patient's (or their legal accounts payable representative's) satisfaction and the patient (or their legal accounts payable representative) gave informed consent to the procedure. I attest that I re-evaluated the patient just prior to the surgery and that there has been no change in the patient's H&P, except as documented below: Post Procedure Assessment Communication: No Apparent Limitation Mental Status: Awake Respiration: Unlabored Skin Condition: WNL Adomen: WNL Nausea: NO Vomiting: NO Wilfredo Avery MD Jan 25, 2019 15:11
--- NOTE | 2019-01-25 16:39 | Diagnostic Imaging Report ---
Indication: History of removal of bilateral infected silicone buttock implants with more recent development of cellulitis and infection in the right surgical site. We are asked to perform aspiration and drainage and to remove the last right sided surgical drain which is likely infected (surgeon recently removed 3 of the 4 drains). Technique: All preceding relevant cross sectional images were reviewed prior to the procedure. Grayscale ultrasound evaluation of bilateral lateral hip fluid collections in question were performed in real-time. Subsequent to the procedure, continuous helical transaxial imaging of the region of interest was then obtained. No IV contrast given. Coronal 2-D reformats were also obtained. Study obtained in a Siemens sensation [address] Total Dose length Product (DLP): [address] Dose Index Volume (CTDIvol): 0.25, 16.02 mGy Comparison: None Procedure: After review of the relevant cross-sectional images and ultrasound evaluation, the most feasible and safest percutaneous trajectory and approach was chosen. Decided to perform the procedure under ultrasound guidance; the main advantage of this was the ability to direct the catheter trajectory in real-time. The old right-sided surgical drain was removed without incident. The tip was cut and sent for tests. The skin was then sterilely prepped and draped. 1% lidocaine was administered for local anesthesia. Dermatotomy was made. Direct stick of the collection was performed using a trocar/14 [place] catheter under direct sonographic guidance. The inner trocar needle was removed and the catheter was advanced into the collection. Aspiration performed. Pigtail formed with the position confirmed under ultrasound, then CT images showing good positioning of the catheter within the cavity. About 30 cc of turbid fluid was drained from the right sided fluid collection. The procedure was repeated for the left-sided collection is exactly the same fashion utilizing a trocar/10 [place] catheter under direct sonographic guidance. A 22 cc of relatively clear seroma fluid was drained. Both catheters secured onto the skin. Both fluid collections were sent for Gram stain, culture and sensitivities, AFB stain/culture and fungal stains/culture. There were no complications. Patient tolerated the procedure well. Findings: Postprocedure CT was performed for final confirmation of the catheter position. Both pigtail catheters appear to be in good position with minimal residual fluid noted, considerably improved from the previous preprocedure CT done 01/24/2019. Impression: Successful aspiration and drainage of bilateral subcutaneous seromas. 14 [place] catheter placed on the right. 10 [place] catheter placed on the left. No complications. Cultures and stains pending. The CT scanner at [facility] is accredited by the [employer] and the scans are performed using dose optimization techniques as appropriate to a performed exam including Automatic Exposure control.
--- NOTE | 2019-01-25 16:39 | Diagnostic Imaging Report ---
Indication: History of removal of bilateral infected silicone buttock implants with more recent development of cellulitis and infection in the right surgical site. We are asked to perform aspiration and drainage and to remove the last right sided surgical drain which is likely infected (surgeon recently removed 3 of the 4 drains). Technique: All preceding relevant cross sectional images were reviewed prior to the procedure. Grayscale ultrasound evaluation of bilateral lateral hip fluid collections in question were performed in real-time. Subsequent to the procedure, continuous helical transaxial imaging of the region of interest was then obtained. No IV contrast given. Coronal 2-D reformats were also obtained. Study obtained in a Siemens sensation [address] Total Dose length Product (DLP): [address] Dose Index Volume (CTDIvol): 0.25, 16.02 mGy Comparison: None Procedure: After review of the relevant cross-sectional images and ultrasound evaluation, the most feasible and safest percutaneous trajectory and approach was chosen. Decided to perform the procedure under ultrasound guidance; the main advantage of this was the ability to direct the catheter trajectory in real-time. The old right-sided surgical drain was removed without incident. The tip was cut and sent for tests. The skin was then sterilely prepped and draped. 1% lidocaine was administered for local anesthesia. Dermatotomy was made. Direct stick of the collection was performed using a trocar/14 [place] catheter under direct sonographic guidance. The inner trocar needle was removed and the catheter was advanced into the collection. Aspiration performed. Pigtail formed with the position confirmed under ultrasound, then CT images showing good positioning of the catheter within the cavity. About 30 cc of turbid fluid was drained from the right sided fluid collection. The procedure was repeated for the left-sided collection is exactly the same fashion utilizing a trocar/10 [place] catheter under direct sonographic guidance. A 22 cc of relatively clear seroma fluid was drained. Both catheters secured onto the skin. Both fluid collections were sent for Gram stain, culture and sensitivities, AFB stain/culture and fungal stains/culture. There were no complications. Patient tolerated the procedure well. Findings: Postprocedure CT was performed for final confirmation of the catheter position. Both pigtail catheters appear to be in good position with minimal residual fluid noted, considerably improved from the previous preprocedure CT done 01/24/2019. Impression: Successful aspiration and drainage of bilateral subcutaneous seromas. 14 [place] catheter placed on the right. 10 [place] catheter placed on the left. No complications. Cultures and stains pending. The CT scanner at [facility] is accredited by the [employer] and the scans are performed using dose optimization techniques as appropriate to a performed exam including Automatic Exposure control.
[2019-01-25] MEDS: oxyCODONE HCL/Acetaminophen 5/325mg ORAL PRN (17:07)
--- NOTE | 2019-01-25 18:31 | History & Physical ---
History and Physical History & Physicial dictated #[id number] Bruno Dinero MD Jan 25, 2019 18:31
--- NOTE | 2019-01-25 23:00 | History and Physical Report ---
DATE OF ADMISSION: 01/24/2019 HPI: This is a 38-year-old female, status post sexual reassignment surgery in 2013, cholecystectomy, anxiety, bilateral butt silicon surgery in 2007, and hypertension, who underwent a gluteal tissue necrosis removal in November 2018 with debridement of bilateral buttocks, back, and hip and discharged home with drain on each side of her gluteal, who now returns for right-sided pain and swelling and redness near the right drain. The patient denies having any fevers. She states this pain started 2 days ago. She states that her right side is more swollen than the left. The patient states that she has had about 75 mL of drainage from her right [place] drain daily. She is asked to come in by her surgeon for evaluation of her pain. A CT in the emergency room shows bilateral superficial subcutaneous fluid collections consistent with postoperative seromas with SAIRA noted on the right traversing part of the right fluid collection. PAST MEDICAL HISTORY: Sexual reassignment surgery, hypertension, bilateral buttocks silicon injection in 2007, bilateral buttocks silicon removal and debridement in November 2018, and cholecystectomy. PAST SURGICAL HISTORY: As above. MEDICATIONS: Reviewed in [employer]. ALLERGIES: No known drug allergies. FAMILY HISTORY: Noncontributory. SOCIAL HISTORY: The patient drinks occasionally. No smoking. No drugs. REVIEW OF SYSTEMS: A 12-point review of systems is negative except for pertinent positives as mentioned above. PHYSICAL EXAMINATION: VITAL SIGNS: Temperature is 99, pulse is 98, respiratory rate 18, blood pressure 117/78, and O2 saturation is 100% on room air. GENERAL: No acute distress. The patient is awake, alert, and oriented x3. HEENT: Normocephalic/atraumatic. NECK: Supple. No JVD. LUNGS: Clear to auscultation bilaterally. No crackles, rhonchi, or rales. CARDIOVASCULAR: Regular rate and rhythm. Normal S1, S2. ABDOMEN: Soft, nontender, and nondistended. EXTREMITIES: Bilateral hip drains in place. The right hip is somewhat warm to touch, however, no erythema seen. There is some tenderness. SKIN: As above, right hip gluteal drain is somewhat tender to touch in the surrounding skin and warm. LABORATORY DATA: CBC, white count of 12.7, hemoglobin of 13.4, and platelet count 439,000. BMP, sodium 135, potassium 4.1, chloride is 100, CO2 27, BUN is 14, creatinine is 1, and glucose 163. UA is 15 to 20 white blood cells. IMAGING: As above, bilateral seromas of gluteal with drains in place. ASSESSMENT: 1. Right infected seroma status post CT-guided drain. 2. Left postoperative seroma of the gluteal status post drain placement. 3. Right gluteal/hip cellulitis. 4. Hypertension. 5. Sexual reassignment surgery. PLAN: 1. Admit the patient to Med/Surg. 2. Antibiotics, doxycycline IV and Zosyn. The patient has allergy to vancomycin. 3. Pain control. 4. Plastic is consulted. 5. We will monitor bilateral drain output. 6. DVT prophylaxis . 7. Full Code. Bruno Dinero MD DR: RUDY JOB#: [id number] CC:
[2019-01-26] VITALS: BP 120/84
[2019-01-26] MEDS: Piperacillin/Tazobactam 3.375 GM in NS 110 ML IVPB SCH (03:05)
[2019-01-26] MEDS: DiphenhydrAMINE 50mg/ml Inj IVP PRN ×2 (03:13→11:23)
[2019-01-26 04:00] VITALS: BP 129/73
[2019-01-26 06:48] LABS: BASOPHILS % (AUTO) 0.7 % (0.0-2.0); HEMATOCRIT 33.6 % (37.0-47.0); HEMOGLOBIN 11.4 G/DL (12.0-16.0); LYMPHOCYTES % (AUTO) 31.8 % (20.0-45.0); MEAN CORPUSCULAR VOLUME 87 FL (80-99); NEUTROPHILS % (AUTO) 58.5 % (45.0-75.0); PLATELET COUNT 346 K/UL (150-450); RED BLOOD COUNT 3.86 M/UL (4.20-5.40); RED CELL DISTRIBUTION WIDTH 11.1 % (11.6-14.8); WHITE BLOOD COUNT 6.2 K/UL (4.8-10.8)
[2019-01-26 07:03] LABS: ANION GAP 8 mmol/L (5-15); BLOOD UREA NITROGEN 17 mg/dL (7-18); CALCIUM 9.1 MG/DL (8.5-10.1); CARBON DIOXIDE 26 MMOL/L (21-32); CHLORIDE 105 MMOL/L (98-107); CREATININE 0.8 MG/DL (0.55-1.30); POTASSIUM 3.9 MMOL/L (3.5-5.1); SODIUM 139 MMOL/L (136-145)
[2019-01-26 08:00] VITALS: BP 114/78
[2019-01-26] MEDS: oxyCODONE HCL/Acetaminophen 5/325mg ORAL PRN (08:28)
[2019-01-26] MEDS: Doxycycline 100mg in D5W 110ml IV SCH (08:29)
[2019-01-26] MEDS: Lisinopril 20mg tab ORAL SCH (08:29)
[2019-01-26] MEDS ORDERED: Piperacillin/Tazobactam 3.375 GM in NS 110 ML IVPB SCH (11:00)
[2019-01-26 12:00] VITALS: BP 110/70
--- NOTE | 2019-01-26 16:06 | Discharge Summary ---
Discharge Summary Hospital Course Date of Admission Jan 24, 2019 at 22:09 Date of Discharge Admitting Diagnosis infected seroma. HPI This is a 38-year-old female, status post sexual reassignment surgery in 2013, cholecystectomy, anxiety, bilateral butt silicon surgery in 2007, and hypertension, who underwent a gluteal tissue necrosis removal in November 2018 with debridement of bilateral buttocks, back, and hip and discharged home with drain on each side of her gluteal, who now returns for right-sided pain and swelling and redness near the right drain. A CT in the emergency room shows bilateral superficial subcutaneous fluid collections consistent with postoperative seromas with SAIRA noted on the right traversing part of the right fluid collection. She underwent a CT guided pigtail drain placement bilaterally. cultures are no growth so far. She was empirically started on vanco and zosyn. being discharged with 1 wk supply of clindamycin and cipro aswell as limited percocet for pain. Discharge Condition Upon Discharge: stable Discharge Disposition Patient was discharged to HOME Bruno Dinero MD Jan 26, 2019 16:06
--- NOTE | 2019-01-26 16:13 | Discharge Instructions ---
Discharge Instructions Discharge Instructions Follow up with: Dr. Shah in 1 wk Call MD/Return to Hospital if: worsening symptoms For Congestive Heart Failure Reminder Report to your physician any weight gain of 5 pounds or more in one week. Bruno Dinero MD Jan 26, 2019 16:13
[2019-01-26] MEDS ORDERED: PERCOCET 5-3251 EACH ORAL (16:24)
[2019-01-26] MEDS ORDERED: CIPRO250 MG ORAL (16:26)
[2019-01-26 16:27] VITALS: BP 98/65
[2019-01-26] MEDS ORDERED: Tubing IV Secondary IV ONE (18:49)
[2019-01-26] MEDS ORDERED: NS 275ml ONE (18:49)
[2019-01-27] MEDS ORDERED: Lisinopril 20mg tab ORAL SCH (21:00)
== END 2019-01-26 18:50 | disposition home or self-care (01) | DRG 863 ==
LOC: EMR 22:05 → 4E 22:09 → EDBEDREQ 22:44
PROC: 0J9930Z Drainage of Buttock Subcutaneous Tissue and Fascia with Drainage Device, Percutaneous Approach (ICD-10-PCS; principal; 2019-01-25)
DX: T81.40XA Infection following a procedure, unspecified, initial encounter (principal); L76.34 Postprocedural seroma of skin and subcutaneous tissue following other procedure; L03.317 Cellulitis of buttock; L03.115 Cellulitis of right lower limb; I10 Essential (primary) hypertension; Z90.49 Acquired absence of other specified parts of digestive tract; Z87.890 Personal history of sex reassignment
CPT/HCPCS: 36415; 72192; 72193; 75989; 80048; 81003; 82550; 83605; 84484; 85025; 85610; 85730; 87040; 87070; 87086; 87116; 87181; 87205; 96361; 96365; 96366; 96368; 96375; 99285; J2250; J3490